=== PATIENT | male | born 1970 | race Caucasian/White ===

== ENCOUNTER 2017-10-19 19:35 | Observation (INO) | payer MEDICAID ==
[~2017-10-19] VITALS: Ht 180.3 cm; Wt 112.0 kg
[~2017-10-19 19:35] MED LIST: ASPI81TA52 PO; ATOR-2 PO; AZIT250T PO; CARV-49 PO; FENO160T PO; FURO40TA4 PO; LISI2.5T2 PO; NAPR220C15 PO; NITR0.4T51 SL; OMEG1CAP54 PO; POTA10TA19 PO; ZOLP10TA5 PO
[2017-10-19] MEDS ORDERED: FURO-149 PO (20:01)
[2017-10-19] MEDS ORDERED: aspirin 81mg tab.chew PO ONE (20:10)
[2017-10-19 20:19] LABS: BASOPHILS # (AUTO) 0.1 X10'3 (0-0.2); BASOPHILS % (AUTO) 1.1 % (0-1); EOSINOPHILS # (AUTO) 0.8 X10'3 (0-0.9); EOSINOPHILS % (AUTO) 11.9 % (0-6); HEMATOCRIT 35.3 % (42.0-52.0); HEMOGLOBIN 12.1 g/dl (14.0-17.9); LYMPHOCYTES # (AUTO) 1.4 X10'3 (1.1-4.8); LYMPHOCYTES % (AUTO) 21.4 % (21-51); MEAN CORPUSCULAR HEMOGLOBIN 31.9 PG (27.0-31.0); MEAN CORPUSCULAR HGB CONC 34.4 % (33.0-36.5); MEAN CORPUSCULAR VOLUME 92.6 FL (78-98); MEAN PLATELET VOLUME 9.1 FL (7.4-10.4); MONOCYTES # (AUTO) 0.6 X10'3 (0-0.9); MONOCYTES % (AUTO) 9.6 % (2-12); NEUTROPHILS # (AUTO) 3.6 X10'3 (1.8-7.7); PLATELET COUNT 240 X10'3 (140-440); RED BLOOD COUNT 3.81 X10'6 (4.70-6.10); RED CELL DISTRIBUTION WIDTH 13.3 % (11.5-14.5); WHITE BLOOD COUNT 6.4 X10'3 (4.5-11.0)
[2017-10-19 20:31] LABS: INR 1.1 INR; PARTIAL THROMBOPLASTIN TIME 24 SECONDS (22-32); PROTHROMBIN TIME 11.4 SECONDS (9.0-12.0)
[2017-10-19 20:34] LABS: ALANINE AMINOTRANSFERASE 41 U/L (12-78); ALBUMIN 3.8 G/DL (3.4-5.0); ALBUMIN/GLOBULIN RATIO 1.2 (1.1-1.5); ALKALINE PHOSPHATASE 43 IU/L (46-116); ANION GAP 6 (8-16); ASPARTATE AMINO TRANSFERASE 37 U/L (10-37); BILIRUBIN,TOTAL 0.6 MG/DL (0.1-1.0); BLOOD UREA NITROGEN 28 MG/DL (7-18); BUN/CREATININE RATIO 19.7 (5.4-32.0); CHLORIDE 106 MMOL/L (99-107); CREATININE 1.42 MG/DL (0.60-1.10); GLUCOSE 102 MG/DL (70-104); POTASSIUM 4.2 MMOL/L (3.5-5.1); SODIUM 139 MMOL/L (135-145); TOTAL CARBON DIOXIDE 27.1 MMOL/L (24-32); TOTAL PROTEIN 7.1 G/DL (6.4-8.2); eGFR 53 ML/MIN
[2017-10-19] MEDS: nitroGLYCERIN 0.4mg SUBLingual tab SL PRN ×2 (22:00→22:22)
[2017-10-19] MEDS ORDERED: acetaminophen 325mg tablet PO PRN ×3 (22:25)
[2017-10-19] MEDS ORDERED: magnesium hydroxide 30ml (MOM) UD suspension PO PRN ×2 (22:25)
[2017-10-19] MEDS ORDERED: mag hydrox/Alum hydrox/simeth 30ml oral suspension PO PRN ×2 (22:25)
[2017-10-19] MEDS ORDERED: ondansetron/PF 4mg/2ml inj IV PRN (22:25)
[2017-10-19] MEDS ORDERED: bisacodyl 10mg suppository rectal RC PRN (22:35)
[2017-10-19] MEDS ORDERED: nitroGLYCERIN 0.4mg SUBLingual tab SL PRN (22:35)
[2017-10-19] MEDS ORDERED: zolpidem 5mg tablet PO PRN (22:35)
[2017-10-19] MEDS ORDERED: ibuprofen 200mg tablet PO ONE (23:00)
[2017-10-19 23:36] VITALS: BP 129/76
[2017-10-20] MEDS ORDERED: morphine 2 MG/ML inj. syringe IV ONE (01:40)
[2017-10-20 02:02] LABS: ALANINE AMINOTRANSFERASE 25 U/L (12-78); ALBUMIN 2.7 G/DL (3.4-5.0); ALBUMIN/GLOBULIN RATIO 1.1 (1.1-1.5); ALKALINE PHOSPHATASE 29 IU/L (46-116); ANION GAP 7 (8-16); ASPARTATE AMINO TRANSFERASE 29 U/L (10-37); BILIRUBIN,TOTAL 0.4 MG/DL (0.1-1.0); BLOOD UREA NITROGEN 25 MG/DL (7-18); BUN/CREATININE RATIO 25.3 (5.4-32.0); CALCIUM 6.8 MG/DL (8.5-10.1); CHLORIDE 112 MMOL/L (99-107); CREATININE 0.99 MG/DL (0.60-1.10); GLUCOSE 73 MG/DL (70-104); POTASSIUM 3.1 MMOL/L (3.5-5.1); SODIUM 141 MMOL/L (135-145); TOTAL CARBON DIOXIDE 22.4 MMOL/L (24-32); TOTAL PROTEIN 5.2 G/DL (6.4-8.2); eGFR 80 ML/MIN
[2017-10-20 02:09] LABS: MAGNESIUM 1.5 MG/DL (1.5-2.4)
[2017-10-20 06:00] VITALS: BP 104/59
[2017-10-20 07:47] LABS: BASOPHILS # (AUTO) 0.1 X10'3 (0-0.2); BASOPHILS % (AUTO) 1.5 % (0-1); EOSINOPHILS # (AUTO) 0.6 X10'3 (0-0.9); EOSINOPHILS % (AUTO) 14.2 % (0-6); HEMATOCRIT 32.2 % (42.0-52.0); LYMPHOCYTES # (AUTO) 1.2 X10'3 (1.1-4.8); LYMPHOCYTES % (AUTO) 26.4 % (21-51); MEAN CORPUSCULAR HEMOGLOBIN 31.5 PG (27.0-31.0); MEAN CORPUSCULAR HGB CONC 34.1 % (33.0-36.5); MEAN CORPUSCULAR VOLUME 92.4 FL (78-98); MEAN PLATELET VOLUME 8.9 FL (7.4-10.4); MONOCYTES # (AUTO) 0.4 X10'3 (0-0.9); MONOCYTES % (AUTO) 8.8 % (2-12); NEUTROPHILS # (AUTO) 2.2 X10'3 (1.8-7.7); NEUTROPHILS % (AUTO) 49.1 % (42-75); PLATELET COUNT 187 X10'3 (140-440); RED BLOOD COUNT 3.48 X10'6 (4.70-6.10); RED CELL DISTRIBUTION WIDTH 13.5 % (11.5-14.5); WHITE BLOOD COUNT 4.5 X10'3 (4.5-11.0)
[2017-10-20] MEDS ORDERED: potassium chloride 10mEq ER tablet PO SCH (08:00)
[2017-10-20] MEDS ORDERED: heparin, porcine 5000 units/ml vial SQ SCH (08:00)
[2017-10-20] MEDS ORDERED: lisinopril 2.5mg tablet PO SCH (08:00)
[2017-10-20] MEDS ORDERED: OMEGA-3/DHA/EPA/FISH OIL 1 EACH CAPSULE.DR PO SCH (08:00)
[2017-10-20] MEDS ORDERED: carvedilol 6.25mg tablet PO SCH (08:00)
[2017-10-20] MEDS ORDERED: aspirin 81mg tab.chew PO SCH (08:30)
[2017-10-20 10:00] VITALS: BP 115/57
[2017-10-20] MEDS ORDERED: potassium Cl 20 mEq SR tablet PO PRN ×2 (10:35)
[2017-10-20] MEDS ORDERED: magnesium Cl slow-release 64mg tablet PO PRN (10:35)
[2017-10-20] MEDS ORDERED: potassium Cl 40MEQ/NS 500ml 500 ML IV PRN ×2 (10:35)
[2017-10-20] MEDS ORDERED: PANT40TA4 PO (11:59)
[2017-10-20] MEDS ORDERED: fenofibrate 145mg tablet PO SCH (21:00)
[2017-10-20] MEDS ORDERED: furosemide 40mg tablet PO SCH (21:00)
[2017-10-20] MEDS ORDERED: atorvastatin 20mg tablet PO SCH (21:00)
== END 2017-10-20 12:43 | disposition home or self-care (01) ==
LOC: ER 19:36 → ED HOLD 22:22 → INTOOBSV 22:22 → ORTHO 4S 23:28
PROVIDERS: ADMIT Emergency Medicine; ATTEND Emergency Medicine
DX: R07.89 Other chest pain (principal); I25.10 Atherosclerotic heart disease of native coronary artery without angina pectoris; I10 Essential (primary) hypertension; G47.30 Sleep apnea, unspecified; I25.2 Old myocardial infarction; Z95.1 Presence of aortocoronary bypass graft; Z95.5 Presence of coronary angioplasty implant and graft; Z95.0 Presence of cardiac pacemaker; Z87.442 Personal history of urinary calculi
CPT/HCPCS: 36415; 71045; 80053; 83735; 84484; 85025; 85610; 85730; 87070; 93005; 93306; 96372; 96374; 99285; G0378; J1644; J2270

== ENCOUNTER 2018-06-13 20:27 | Emergency (ER) | payer MEDICAID ==
[~2018-06-13] VITALS: Ht 180.3 cm; Wt 120.0 kg
[~2018-06-13 20:27] MED LIST changes: -AZIT250T PO; +FURO-149 PO; -FURO40TA4 PO; -NAPR220C15 PO; +PANT40TA4 PO
[2018-06-13 21:20] LABS: ALANINE AMINOTRANSFERASE 36 U/L (12-78); ALBUMIN 3.5 G/DL (3.4-5.0); ALKALINE PHOSPHATASE 54 IU/L (46-116); ANION GAP 7 (8-16); ASPARTATE AMINO TRANSFERASE 31 U/L (10-37); BILIRUBIN,TOTAL 0.4 MG/DL (0.1-1.0); BLOOD UREA NITROGEN 22 MG/DL (7-18); BUN/CREATININE RATIO 22.7 (5.4-32.0); CALCIUM 9.4 MG/DL (8.5-10.1); CHLORIDE 104 MMOL/L (99-107); CREATININE 0.97 MG/DL (0.60-1.10); GLUCOSE 140 MG/DL (70-104); SODIUM 138 MMOL/L (135-145); TOTAL CARBON DIOXIDE 27.1 MMOL/L (24-32); eGFR 82 ML/MIN
[2018-06-13 21:29] LABS: BASOPHILS # (AUTO) 0.1 X10'3 (0-0.2); BASOPHILS % (AUTO) 0.9 % (0-1); EOSINOPHILS # (AUTO) 0.6 X10'3 (0-0.9); EOSINOPHILS % (AUTO) 8.9 % (0-6); HEMATOCRIT 36.9 % (42.0-52.0); HEMOGLOBIN 12.3 g/dl (14.0-17.9); LYMPHOCYTES # (AUTO) 1.5 X10'3 (1.1-4.8); LYMPHOCYTES % (AUTO) 22.3 % (21-51); MEAN CORPUSCULAR HEMOGLOBIN 30.2 PG (27.0-31.0); MEAN CORPUSCULAR HGB CONC 33.2 g/dL (33.0-36.5); MEAN PLATELET VOLUME 8.3 FL (7.4-10.4); MONOCYTES # (AUTO) 0.8 X10'3 (0-0.9); MONOCYTES % (AUTO) 12.1 % (2-12); NEUTROPHILS # (AUTO) 3.8 X10'3 (1.8-7.7); NEUTROPHILS % (AUTO) 55.8 % (42-75); PLATELET COUNT 231 X10'3 (140-440); RED BLOOD COUNT 4.06 X10'6 (4.70-6.10); RED CELL DISTRIBUTION WIDTH 13.4 % (11.5-14.5); WHITE BLOOD COUNT 6.7 X10'3 (4.5-11.0)
[2018-06-13 22:05] LABS: CLARITY,URINE CLOUDY (Clear); COLOR,URINE AMBER (Yellow); GLUCOSE, URINE NEGATIVE (Neg); KETONES,URINE NEGATIVE (Neg); LEUKOCYTE ESTERASE ,URINE NEGATIVE (Neg); NITRITES, URINE NEGATIVE (Neg); OCCULT BLOOD,URINE LARGE (Neg); PROTEIN,URINE 30 mg/dl (Neg); UROBILINOGEN,URINE 0.2 E.U/dL (0.2-1.0)
[2018-06-13 22:06] LABS: UA COLLECTION TYPE CLN CATCH MIDSTREAM
[2018-06-13 22:10] LABS: WBC,URINE 0-4 /HPF (0-4)
[2018-06-13 22:11] LABS: BACTERIA,URINE FEW /HPF (Neg); RBC,URINE TNTC /HPF (0-2); SQUAMOUS EPITHELIAL CELL,UR FEW /LPF (FEW)
[2018-06-13 22:20] LABS: INR 1.2 INR; PROTHROMBIN TIME 11.7 SECONDS (9.0-12.0)
[2018-06-14] MEDS ORDERED: ondansetron/PF 4mg/2ml inj IV ONE (00:40)
[2018-06-14] MEDS ORDERED: normal saline 1000ML IV soln IVB ONE (00:40)
[2018-06-14] MEDS ORDERED: ketorolac trometh. 30mg/ml inj. IV ONE (00:40)
[2018-06-14] MEDS: morphine 4 MG/ML inj SYRINge IV PRN ×2 (00:48→02:02)
--- NOTE | 2018-06-14 00:55 | NUR ---
pt going to ct via wc
[2018-06-14] MEDS ORDERED: morphine 4 MG/ML inj SYRINge IV PRN (01:20)
[2018-06-14] MEDS ORDERED: HYDROcodone/acetaminophen 10/325mg tab PO ONE (01:20)
[2018-06-14] MEDS ORDERED: HYDR-4353 PO (02:39)
[2018-06-14] MEDS ORDERED: IBUP-1984 PO (02:39)
[2018-06-14 02:46] VITALS: BP 117/62
== END 2018-06-14 02:47 | disposition home or self-care (01) ==
LOC: ER 20:28
DX: N20.1 Calculus of ureter (principal); N23 Unspecified renal colic; I25.10 Atherosclerotic heart disease of native coronary artery without angina pectoris; I10 Essential (primary) hypertension; I25.2 Old myocardial infarction; Z87.442 Personal history of urinary calculi; Z87.891 Personal history of nicotine dependence; Z95.5 Presence of coronary angioplasty implant and graft; Z95.1 Presence of aortocoronary bypass graft; Z95.0 Presence of cardiac pacemaker; Z98.890 Other specified postprocedural states; Z88.0 Allergy status to penicillin; Z79.82 Long term (current) use of aspirin; Z79.899 Other long term (current) drug therapy
CPT/HCPCS: 36415; 74176; 80053; 81001; 85025; 85610; 96374; 96375; 96376; 99284; J1885; J2270; J2405; J7030

== ENCOUNTER 2018-07-13 09:38 | Emergency (ER) | payer MEDICAID ==
[2018-07-13] VITALS (7 sets, daily range): BP systolic 106–135; BP diastolic 56–71
[~2018-07-13] VITALS: Ht 180.3 cm; Wt 115.0 kg
[~2018-07-13 09:38] MED LIST changes: +HYDR-4353 PO; +IBUP-1984 PO
[2018-07-13 10:46] LABS: BASOPHILS # (AUTO) 0.1 X10'3 (0-0.2); BASOPHILS % (AUTO) 1.2 % (0-1); EOSINOPHILS # (AUTO) 0.3 X10'3 (0-0.9); EOSINOPHILS % (AUTO) 4.6 % (0-6); HEMATOCRIT 43.9 % (42.0-52.0); HEMOGLOBIN 14.8 g/dl (14.0-17.9); LYMPHOCYTES # (AUTO) 1.4 X10'3 (1.1-4.8); LYMPHOCYTES % (AUTO) 20.2 % (21-51); MEAN CORPUSCULAR HEMOGLOBIN 29.5 PG (27.0-31.0); MEAN CORPUSCULAR HGB CONC 33.8 g/dL (33.0-36.5); MEAN CORPUSCULAR VOLUME 87.4 FL (78-98); MEAN PLATELET VOLUME 8.2 FL (7.4-10.4); MONOCYTES # (AUTO) 0.8 X10'3 (0-0.9); MONOCYTES % (AUTO) 12.6 % (2-12); NEUTROPHILS # (AUTO) 4.1 X10'3 (1.8-7.7); NEUTROPHILS % (AUTO) 61.4 % (42-75); PLATELET COUNT 273 X10'3 (140-440); RED BLOOD COUNT 5.03 X10'6 (4.70-6.10); RED CELL DISTRIBUTION WIDTH 13.3 % (11.5-14.5); WHITE BLOOD COUNT 6.7 X10'3 (4.5-11.0)
[2018-07-13 10:52] LABS: CLARITY,URINE CLEAR (Clear); COLOR,URINE YELLOW (Yellow); GLUCOSE, URINE NEGATIVE (Neg); KETONES,URINE TRACE mg/dl (Neg); LEUKOCYTE ESTERASE ,URINE TRACE (Neg); NITRITES, URINE NEGATIVE (Neg); OCCULT BLOOD,URINE LARGE (Neg); PROTEIN,URINE 30 mg/dl (Neg); UROBILINOGEN,URINE 0.2 E.U/dL (0.2-1.0)
[2018-07-13 10:59] LABS: UA COLLECTION TYPE CLN CATCH MIDSTREAM
[2018-07-13 11:00] LABS: BACTERIA,URINE FEW /HPF (Neg); RBC,URINE 20-50 /HPF (0-2)
[2018-07-13 11:01] LABS: CAL OXALATE CRYSTALS 1+ /HPF (NEGATIVE); MUCUS STRANDS MODERATE /LPF (Neg); SQUAMOUS EPITHELIAL CELL,UR FEW /LPF (FEW)
[2018-07-13 11:01] LABS: ALANINE AMINOTRANSFERASE 43 U/L (12-78); ALBUMIN/GLOBULIN RATIO 1.1 (1.1-1.5); ALKALINE PHOSPHATASE 55 IU/L (46-116); ANION GAP 10 (8-16); ASPARTATE AMINO TRANSFERASE 40 U/L (10-37); BILIRUBIN,TOTAL 0.5 MG/DL (0.1-1.0); BLOOD UREA NITROGEN 22 MG/DL (7-18); BUN/CREATININE RATIO 20.8 (5.4-32.0); CALCIUM 10.2 MG/DL (8.5-10.1); CHLORIDE 104 MMOL/L (99-107); CREATININE 1.06 MG/DL (0.60-1.10); GLUCOSE 131 MG/DL (70-104); INR 1.1 INR; PROTHROMBIN TIME 11.4 SECONDS (9.0-12.0); SODIUM 141 MMOL/L (135-145); TOTAL CARBON DIOXIDE 27.2 MMOL/L (24-32); TOTAL PROTEIN 7.8 G/DL (6.4-8.2); eGFR 74 ML/MIN
[2018-07-13] MEDS ORDERED: ketorolac trometh. 30mg/ml inj. IV ONE (11:05)
[2018-07-13] MEDS ORDERED: tamsulosin 0.4mg capsule PO ONE (11:05)
[2018-07-13] MEDS ORDERED: morphine 2 MG/ML inj. syringe IV PRN (11:05)
[2018-07-13] MEDS ORDERED: normal saline 1000ML IV soln IVB ONE (11:05)
--- NOTE | 2018-07-13 12:10 | NUR ---
EXPECTED CALL BACK FROM [facility] WITHIN 20 MIN
[2018-07-13] MEDS ORDERED: dextrose 5%-1/2 normal saline 1,000 ML IV SCH (13:04)
[2018-07-13] MEDS ORDERED: acetaminophen 325mg tablet PO PRN ×2 (13:05)
[2018-07-13] MEDS ORDERED: ondansetron/PF 4mg/2ml inj IV PRN ×2 (13:05→15:10)
[2018-07-13] MEDS ORDERED: mag hydrox/Alum hydrox/simeth 30ml oral suspension PO PRN (13:05)
[2018-07-13] MEDS ORDERED: magnesium hydroxide 30ml (MOM) UD suspension PO PRN (13:05)
[2018-07-13] MEDS ORDERED: morphine 4 MG/ML inj SYRINge IV PRN ×4 (13:05→15:10)
--- NOTE | 2018-07-13 13:43 | NUR ---
vincentar to don plunkett or
[2018-07-13] MEDS ORDERED: iohexol 300 MG/1 ML 50ml polymer ONE (13:53)
[2018-07-13] MEDS ORDERED: fentaNYL/PF 50MCG/1 ML 2ML syringe ONE (14:26)
[2018-07-13] MEDS ORDERED: midazolam 2 mg/2 ml injection ONE (14:26)
--- NOTE | 2018-07-13 15:05 | NUR ---
Received from OR via BED , accompanied by Anesthesiologist DR AGUILAR and report given by Anesthesiolgist. PATIENT A&OX4, C/O PAIN SEE EMAR, V/S WNL, CSM INTACT, SCD ON, 20G PIV RUE.
[2018-07-13] MEDS ORDERED: meperidine/PF 25mg/ml syringe ONE (15:06)
[2018-07-13] MEDS ORDERED: ringers solution, lacted 1,000 ML IV SCH (15:09)
[2018-07-13] MEDS ORDERED: meperidine/PF 25mg/ml syringe IV PRN ×2 (15:10)
[2018-07-13] MEDS ORDERED: ondansetron/PF 4mg/2ml inj ONE (15:21)
[2018-07-13] MEDS ORDERED: dexamethasone sod phosphate 4mg/ml inj. ONE (15:21)
[2018-07-13] MEDS ORDERED: LIDOcaine 2% (20mg/ml) 5ml vial ONE (15:21)
[2018-07-13] MEDS ORDERED: albuterol 60 PUFF/8GM Inhaler IH ONE (15:21)
[2018-07-13] MEDS ORDERED: propofol inj 20 ML IV ONE (15:21)
[2018-07-13] MEDS ORDERED: succinylcholine 20mg/ml inj IV ONE (15:21)
--- NOTE | 2018-07-13 16:05 | NUR ---
DR DEJESUS STATED PATIENT MAY GO HOME, I SPOKE WITH HOSPITALIST WHO ALSO STATED HE MAY GO HOME, D/C ORDERS GIVEN. patient a&ox4, DENIES PAIN, V/S WNL, NEUROVASCULAR CHECKS INTACT,RUE PIV, SCD ON, ALL DC CRITERIA HAS BEEN MET. IV OUT WITHOUT ISSUE OR COMPLICATION. DENIES PAIN. FAMILY PRESENT FOR DC PAPERWORK. ALL QUESTIONS ANSWERED, FAMILY ASSISTED PATIENT IN GETTING DRESSED, OUT VIA WHEELCHAIR TO PERSONAL VEHICLE WHERE FAMILY DROVE PATIENT HOME. ALL DC CRITERIA HAS BEEN MET AND DRESSING IS CDI.
[2018-07-13] MEDS ORDERED: tamsulosin 0.4mg capsule PO SCH (21:00)
[2018-07-14] MEDS ORDERED: enoxaparin 40mg/0.4ml syringe SUBCUT SCH (08:00)
== END 2018-07-13 16:05 | disposition home or self-care (01) ==
LOC: ER 09:39 → UNDOADMIN 13:04 → ED HOLD 13:04 → EDBEDREQ 13:42 → ER 16:05 → UNDODISIN 16:27
PROC: 0T738DZ Dilation of Right Kidney Pelvis with Intraluminal Device, Via Natural or Artificial Opening Endoscopic (ICD-10-PCS; principal; 2018-07-13 14:25)
DX: N20.1 Calculus of ureter (principal); N13.8 Other obstructive and reflux uropathy; N23 Unspecified renal colic; I25.10 Atherosclerotic heart disease of native coronary artery without angina pectoris; I10 Essential (primary) hypertension; I25.2 Old myocardial infarction; Z87.442 Personal history of urinary calculi; Z95.5 Presence of coronary angioplasty implant and graft; Z95.1 Presence of aortocoronary bypass graft; Z98.890 Other specified postprocedural states; Z95.0 Presence of cardiac pacemaker; Z79.82 Long term (current) use of aspirin; Z79.899 Other long term (current) drug therapy; Z88.0 Allergy status to penicillin; M54.5 Low back pain
CPT/HCPCS: 36415; 52332; 76000; 80053; 81001; 85025; 85610; 87088; 96374; 96375; 99285; C2617; J0330; J1100; J1885; J2001; J2175; J2250; J2270; J2405; J2704; J3010; J7030; J7120; Q9967; 99281; A4402; C1758; C1769; G0378

== ENCOUNTER 2018-07-14 19:15 | Inpatient (IN) | payer MEDICAID ==
[~2018-07-14] VITALS: Ht 180.3 cm; Wt 113.0 kg
[2018-07-14 19:48] LABS: BASOPHILS % (AUTO) 0.2 % (0-1); EOSINOPHILS % (AUTO) 0 % (0-6); HEMATOCRIT 37.5 % (42.0-52.0); HEMOGLOBIN 12.4 g/dl (14.0-17.9); LYMPHOCYTES % (AUTO) 7.6 % (21-51); MEAN CORPUSCULAR HEMOGLOBIN 29.3 PG (27.0-31.0); MEAN CORPUSCULAR HGB CONC 33.2 g/dL (33.0-36.5); MEAN CORPUSCULAR VOLUME 88.2 FL (78-98); MEAN PLATELET VOLUME 8.4 FL (7.4-10.4); MONOCYTES # (AUTO) 1.1 X10'3 (0-0.9); MONOCYTES % (AUTO) 8.5 % (2-12); NEUTROPHILS # (AUTO) 10.8 X10'3 (1.8-7.7); NEUTROPHILS % (AUTO) 83.7 % (42-75); PLATELET COUNT 222 X10'3 (140-440); RED BLOOD COUNT 4.25 X10'6 (4.70-6.10); RED CELL DISTRIBUTION WIDTH 13.2 % (11.5-14.5); WHITE BLOOD COUNT 12.8 X10'3 (4.5-11.0)
[2018-07-14 19:50] LABS: ALANINE AMINOTRANSFERASE 29 U/L (12-78); ALBUMIN 3.4 G/DL (3.4-5.0); ALKALINE PHOSPHATASE 47 IU/L (46-116); ANION GAP 10 (8-16); ASPARTATE AMINO TRANSFERASE 23 U/L (10-37); BILIRUBIN,TOTAL 0.4 MG/DL (0.1-1.0); BLOOD UREA NITROGEN 24 MG/DL (7-18); BUN/CREATININE RATIO 20.2 (5.4-32.0); CALCIUM 9.6 MG/DL (8.5-10.1); CHLORIDE 108 MMOL/L (99-107); CREATININE 1.19 MG/DL (0.60-1.10); GLUCOSE 163 MG/DL (70-104); INR 1.1 INR; POTASSIUM 3.7 MMOL/L (3.5-5.1); PROTHROMBIN TIME 11.4 SECONDS (9.0-12.0); SODIUM 141 MMOL/L (135-145); TOTAL CARBON DIOXIDE 22.8 MMOL/L (24-32); TOTAL PROTEIN 6.7 G/DL (6.4-8.2); eGFR 65 ML/MIN
[2018-07-14] MEDS ORDERED: ketorolac trometh. 30mg/ml inj. IV ONE (20:05)
[2018-07-14] MEDS ORDERED: ondansetron/PF 4mg/2ml inj IV ONE (20:05)
[2018-07-14] MEDS ORDERED: morphine 4 MG/ML inj SYRINge IV ONE ×2 (20:05→20:25)
[2018-07-14] MEDS ORDERED: normal saline 1000ml 1,000 ML IV ONE ×2 (20:25)
[2018-07-14 20:50] LABS: CLARITY,URINE CLOUDY (Clear); COLOR,URINE BROWN (Yellow); GLUCOSE, URINE 250 mg/dl (Neg); KETONES,URINE TRACE mg/dl (Neg); LEUKOCYTE ESTERASE ,URINE SMALL (Neg); NITRITES, URINE POSITIVE (Neg); OCCULT BLOOD,URINE LARGE (Neg); PH,URINE 6.5 (4.8-8.0); PROTEIN,URINE >=300 mg/dl (Neg)
[2018-07-14] MEDS ORDERED: HYDROmorphone 1 mg/ml syringe IV ONE (21:00)
[2018-07-14 21:01] LABS: UA COLLECTION TYPE CLN CATCH MIDSTREAM
[2018-07-14 21:09] LABS: RBC,URINE 50-100 /HPF (0-2); WBC,URINE 20-30 /HPF (0-4)
[2018-07-14 21:10] LABS: BACTERIA,URINE NONE SEEN /HPF (Neg); CAL OXALATE CRYSTALS 2+ /HPF (NEGATIVE); MUCUS STRANDS MANY /LPF (Neg); SQUAMOUS EPITHELIAL CELL,UR FEW /LPF (FEW)
[2018-07-14] MEDS ORDERED: CefTRIAXone/D5W-Rocephin 1gm 50 ML IV ONE (21:10)
[2018-07-14] MEDS ORDERED: potassium Cl 40MEQ/NS 500ml 500 ML IV PRN ×2 (22:05)
[2018-07-14] MEDS ORDERED: HYDROcodone/acetaminophen 5mg/325mg tablet PO PRN (22:05)
[2018-07-14] MEDS ORDERED: HYDROmorphone inj. 0.5 MG/0.5 ML DISP.SYRIN IV PRN (22:05)
[2018-07-14] MEDS ORDERED: magnesium hydroxide 30ml (MOM) UD suspension PO PRN (22:05)
[2018-07-14] MEDS ORDERED: magnesium 2GM in 50ml NS 50 ML IV PRN (22:05)
[2018-07-14] MEDS ORDERED: magnesium Cl slow-release 64mg tablet PO PRN (22:05)
[2018-07-14] MEDS ORDERED: magnesium 4gm in 100ml NS 100 ML IV PRN (22:05)
[2018-07-14] MEDS ORDERED: potassium Cl 20 mEq SR tablet PO PRN ×2 (22:05)
[2018-07-14] MEDS ORDERED: acetaminophen 325mg tablet PO PRN ×2 (22:05)
[2018-07-14] MEDS ORDERED: mag hydrox/Alum hydrox/simeth 30ml oral suspension PO PRN (22:05)
[2018-07-14 23:15] VITALS: BP 163/84
[2018-07-14] MEDS: normal saline 1000ml 1,000 ML IV SCH (23:27)
[2018-07-15] MEDS: HYDROmorphone 1 mg/ml syringe IV PRN ×5 (01:40→21:28)
[2018-07-15] MEDS: ondansetron/PF 4mg/2ml inj IV PRN ×2 (02:30→10:30)
[2018-07-15] MEDS: HYDROcodone/acetaminophen 10/325mg tab PO PRN ×3 (04:32→20:35)
--- NOTE | 2018-07-15 06:45 | NUR ---
Patient in room ORTHO 4013. I have received report from Zoie and had the opportunity to ask questions and assume patient care.
[2018-07-15 06:47] LABS: ALBUMIN 2.7 G/DL (3.4-5.0); ANION GAP 7 (8-16); BLOOD UREA NITROGEN 24 MG/DL (7-18); BUN/CREATININE RATIO 25.3 (5.4-32.0); CALCIUM 8.6 MG/DL (8.5-10.1); CHLORIDE 110 MMOL/L (99-107); CREATININE 0.95 MG/DL (0.60-1.10); GLUCOSE 122 MG/DL (70-104); MAGNESIUM 1.6 MG/DL (1.5-2.4); POTASSIUM 3.8 MMOL/L (3.5-5.1); SODIUM 141 MMOL/L (135-145); TOTAL CARBON DIOXIDE 24.4 MMOL/L (24-32); eGFR 84 ML/MIN
[2018-07-15 07:06] LABS: BASOPHILS % (AUTO) 0.4 % (0-1); EOSINOPHILS % (AUTO) 0.3 % (0-6); HEMATOCRIT 33.2 % (42.0-52.0); HEMOGLOBIN 11.1 g/dl (14.0-17.9); LYMPHOCYTES # (AUTO) 1.3 X10'3 (1.1-4.8); LYMPHOCYTES % (AUTO) 14.9 % (21-51); MEAN CORPUSCULAR HEMOGLOBIN 29.8 PG (27.0-31.0); MEAN CORPUSCULAR HGB CONC 33.5 g/dL (33.0-36.5); MEAN CORPUSCULAR VOLUME 88.8 FL (78-98); MEAN PLATELET VOLUME 8.7 FL (7.4-10.4); MONOCYTES # (AUTO) 0.9 X10'3 (0-0.9); MONOCYTES % (AUTO) 10.3 % (2-12); NEUTROPHILS # (AUTO) 6.5 X10'3 (1.8-7.7); NEUTROPHILS % (AUTO) 74.1 % (42-75); PLATELET COUNT 187 X10'3 (140-440); RED BLOOD COUNT 3.74 X10'6 (4.70-6.10); RED CELL DISTRIBUTION WIDTH 13.4 % (11.5-14.5); WHITE BLOOD COUNT 8.8 X10'3 (4.5-11.0)
[2018-07-15 07:08] VITALS: BP 121/67
[2018-07-15] MEDS: carvedilol 6.25mg tablet PO SCH ×2 (07:58→20:35)
[2018-07-15] MEDS: lactobacillus rhamnosus 10,000 MMU CELLS/CAPSULE PO SCH ×2 (07:58→20:35)
[2018-07-15] MEDS: potassium chloride 10mEq ER tablet PO SCH ×2 (07:58→20:35)
[2018-07-15] MEDS: lisinopril 2.5mg tablet PO SCH (07:59)
[2018-07-15] MEDS: K and/or MAG REPLACEMENT MC SCH (08:00)
[2018-07-15] MEDS: normal saline 1000ml 1,000 ML IV SCH ×2 (08:01→17:09)
--- NOTE | 2018-07-15 08:24 | NUR ---
Bowl sounds absent in all four quadrants. Informed YAMILKA Lino. She assessed the patient and auscultated sounds in the upper right quadrant. Patient is flatus. Addendum: 07/15/18 at 0833 by Jasmeet SANCHEZ-NU Amended: Links added.
--- NOTE | 2018-07-15 08:58 | NUR ---
Patient exhibits guarding in the upper right and right lower abdomen toward groin. Patient exhibits pain upon palpation of upper right and lower right abdomen. Addendum: 07/15/18 at 0906 by Jasmeet NICHOLS Amended: Links added.
--- NOTE | 2018-07-15 09:53 | NUR ---
left, lower ankle swelling. No pitting. Addendum: 07/15/18 at 0954 by Jasmeet NICHOLS Amended: Links added.
--- NOTE | 2018-07-15 11:08 | NUR ---
Patient's assisted with perineal care and cleaning over lower extremities. Addendum: 07/15/18 at 1110 by Jasmeet NICHOLS Amended: Links added.
--- NOTE | 2018-07-15 11:25 | NUR ---
Reassessed bowl sounds of the abdomen. Bowl sounds very faint but auscultated in all four quadrants.
--- NOTE | 2018-07-15 11:30 | NUR ---
Patient ambulated one lap around the 4th floor.
--- NOTE | 2018-07-15 11:38 | NUR ---
Student Medication Administration: For this medication-pass time frame 2564-2165, all medications were reviewed, administered and documented per hospital policy by Diego Shankar. Student documentation: I have reviewed and agree with all interventions, assessments performed and documented by Diego Shankar. Patient has bowel sounds and is passing flatus.
[2018-07-15] MEDS ORDERED: CEFP200T13 PO (12:19)
--- NOTE | 2018-07-15 12:21 | NUR ---
Problems reprioritized. Patient report given, questions answered & plan of care reviewed with
[2018-07-15] MEDS: oxybutynin 5mg tablet PO SCH ×2 (13:23→20:35)
[2018-07-15 14:31] VITALS: BP 151/61
[2018-07-15 18:00] VITALS: BP 112/72
--- NOTE | 2018-07-15 18:30 | NUR ---
Received report from Zoie PRATHER, assumed care of patient.
[2018-07-15] MEDS: CefTRIAXone 2gm/D5W 50ml 50 ML IV SCH (20:35)
[2018-07-15] MEDS: atorvastatin 20mg tablet PO SCH (20:35)
[2018-07-15] MEDS: fenofibrate 145mg tablet PO SCH (20:35)
[2018-07-15] MEDS: zolpidem 5mg tablet PO PRN (21:31)
[2018-07-15 22:00] VITALS: BP 104/66
[2018-07-16] MEDS: HYDROcodone/acetaminophen 10/325mg tab PO PRN ×2 (02:02→07:48)
[2018-07-16] MEDS: HYDROmorphone 1 mg/ml syringe IV PRN ×5 (03:06→21:05)
--- NOTE | 2018-07-16 06:09 | NUR ---
Report given to Zoie PRATHER.
[2018-07-16] MEDS: normal saline 1000ml 1,000 ML IV SCH ×3 (06:48→21:16)
[2018-07-16 06:51] LABS: BASOPHILS # (AUTO) 0.1 X10'3 (0-0.2); BASOPHILS % (AUTO) 0.8 % (0-1); EOSINOPHILS # (AUTO) 0.2 X10'3 (0-0.9); HEMATOCRIT 34.7 % (42.0-52.0); HEMOGLOBIN 11.8 g/dl (14.0-17.9); LYMPHOCYTES # (AUTO) 1.3 X10'3 (1.1-4.8); LYMPHOCYTES % (AUTO) 20.9 % (21-51); MEAN CORPUSCULAR HEMOGLOBIN 29.9 PG (27.0-31.0); MEAN CORPUSCULAR HGB CONC 33.9 g/dL (33.0-36.5); MEAN CORPUSCULAR VOLUME 88.3 FL (78-98); MEAN PLATELET VOLUME 8.2 FL (7.4-10.4); MONOCYTES # (AUTO) 0.7 X10'3 (0-0.9); MONOCYTES % (AUTO) 10.5 % (2-12); NEUTROPHILS # (AUTO) 4.1 X10'3 (1.8-7.7); NEUTROPHILS % (AUTO) 64.8 % (42-75); PLATELET COUNT 180 X10'3 (140-440); RED BLOOD COUNT 3.93 X10'6 (4.70-6.10); RED CELL DISTRIBUTION WIDTH 13.4 % (11.5-14.5); WHITE BLOOD COUNT 6.4 X10'3 (4.5-11.0)
[2018-07-16 06:57] LABS: ALBUMIN 2.8 G/DL (3.4-5.0); ANION GAP 5 (8-16); BLOOD UREA NITROGEN 15 MG/DL (7-18); BUN/CREATININE RATIO 19.5 (5.4-32.0); CALCIUM 9.2 MG/DL (8.5-10.1); CHLORIDE 107 MMOL/L (99-107); CREATININE 0.77 MG/DL (0.60-1.10); GLUCOSE 104 MG/DL (70-104); MAGNESIUM 1.7 MG/DL (1.5-2.4); SODIUM 139 MMOL/L (135-145); TOTAL CARBON DIOXIDE 26.8 MMOL/L (24-32); eGFR > 90 ML/MIN
[2018-07-16 07:02] VITALS: BP 148/80
[2018-07-16] MEDS: K and/or MAG REPLACEMENT MC SCH (07:40)
[2018-07-16] MEDS: lisinopril 2.5mg tablet PO SCH (07:48)
[2018-07-16] MEDS: oxybutynin 5mg tablet PO SCH ×3 (07:48→21:04)
[2018-07-16] MEDS: carvedilol 6.25mg tablet PO SCH ×2 (07:48→21:04)
[2018-07-16] MEDS: potassium chloride 10mEq ER tablet PO SCH ×2 (07:48→21:05)
[2018-07-16] MEDS: lactobacillus rhamnosus 10,000 MMU CELLS/CAPSULE PO SCH ×2 (07:48→21:04)
[2018-07-16 11:14] VITALS: BP 114/61
[2018-07-16 17:00] VITALS: BP 126/84
--- NOTE | 2018-07-16 18:20 | NUR ---
Received report from Zoie PRATHER, assumed care of patient.
[2018-07-16] MEDS ORDERED: amitriptyline 25mg tablet PO SCH (21:00)
[2018-07-16] MEDS: atorvastatin 20mg tablet PO SCH (21:04)
[2018-07-16] MEDS: fenofibrate 145mg tablet PO SCH (21:04)
[2018-07-16] MEDS: CefTRIAXone 2gm/D5W 50ml 50 ML IV SCH (21:04)
[2018-07-16] MEDS: zolpidem 5mg tablet PO PRN (21:04)
[2018-07-16 22:00] VITALS: BP 131/60
[2018-07-17] MEDS: HYDROcodone/acetaminophen 10/325mg tab PO PRN ×3 (01:12→11:35)
[2018-07-17] MEDS: HYDROmorphone 1 mg/ml syringe IV PRN ×3 (03:19→13:11)
--- NOTE | 2018-07-17 04:38 | NUR ---
Pt with c/o increase pain with current pain management orders. Notified MD Cole with new orders received and placed for Boyle 10-325mg 1 tab po q4hr PRN for moderate pain and Boyle 10-325mg 2 tabs po q4hr for severe pain. DC Boyle 5-325 mg 1 tab q4hr PRN for moderate pain. Will update patient with medication change.
[2018-07-17 06:00] VITALS: BP 123/67
--- NOTE | 2018-07-17 06:00 | NUR ---
Patient in room ORTHO 4013. I have received report from Maggie Humphries RN and had the opportunity to ask questions and assume patient care.
[2018-07-17 06:33] LABS: BASOPHILS % (AUTO) 0.5 % (0-1); EOSINOPHILS # (AUTO) 0.3 X10'3 (0-0.9); EOSINOPHILS % (AUTO) 4.8 % (0-6); HEMATOCRIT 37.7 % (42.0-52.0); HEMOGLOBIN 12.5 g/dl (14.0-17.9); LYMPHOCYTES # (AUTO) 1.1 X10'3 (1.1-4.8); LYMPHOCYTES % (AUTO) 19.8 % (21-51); MEAN CORPUSCULAR HEMOGLOBIN 29.3 PG (27.0-31.0); MEAN CORPUSCULAR HGB CONC 33.1 g/dL (33.0-36.5); MEAN CORPUSCULAR VOLUME 88.4 FL (78-98); MEAN PLATELET VOLUME 8.3 FL (7.4-10.4); MONOCYTES # (AUTO) 0.7 X10'3 (0-0.9); NEUTROPHILS # (AUTO) 3.5 X10'3 (1.8-7.7); NEUTROPHILS % (AUTO) 61.9 % (42-75); PLATELET COUNT 195 X10'3 (140-440); RED BLOOD COUNT 4.27 X10'6 (4.70-6.10); RED CELL DISTRIBUTION WIDTH 13.1 % (11.5-14.5); WHITE BLOOD COUNT 5.7 X10'3 (4.5-11.0)
--- NOTE | 2018-07-17 06:33 | NUR ---
Report given to Eris PRATHER.
[2018-07-17 06:37] LABS: ALBUMIN 2.9 G/DL (3.4-5.0); ANION GAP 6 (8-16); BLOOD UREA NITROGEN 14 MG/DL (7-18); BUN/CREATININE RATIO 16.9 (5.4-32.0); CALCIUM 9.4 MG/DL (8.5-10.1); CHLORIDE 106 MMOL/L (99-107); CREATININE 0.83 MG/DL (0.60-1.10); GLUCOSE 111 MG/DL (70-104); MAGNESIUM 1.7 MG/DL (1.5-2.4); SODIUM 139 MMOL/L (135-145); TOTAL CARBON DIOXIDE 26.8 MMOL/L (24-32); eGFR > 90 ML/MIN
[2018-07-17] MEDS: K and/or MAG REPLACEMENT MC SCH (07:53)
[2018-07-17] MEDS: lactobacillus rhamnosus 10,000 MMU CELLS/CAPSULE PO SCH (08:02)
[2018-07-17] MEDS: potassium chloride 10mEq ER tablet PO SCH (08:12)
[2018-07-17] MEDS: carvedilol 6.25mg tablet PO SCH (08:13)
[2018-07-17] MEDS: oxybutynin 5mg tablet PO SCH ×2 (08:13→13:09)
[2018-07-17] MEDS: lisinopril 2.5mg tablet PO SCH (08:13)
[2018-07-17] MEDS: normal saline 1000ml 1,000 ML IV SCH (08:18)
[2018-07-17 10:00] VITALS: BP 119/69
--- NOTE | 2018-07-17 11:29 | NUR ---
Student documentation: I have reviewed all interventions, assessments performed and documented by Nancy Cruz. Student Medication Administration: For this medication-pass time frame, all medication were reviewed, dispensed, administered and documented per hospital policy by Nancy Cruz.
[2018-07-17] MEDS ORDERED: OXYB5TAB11 PO (11:33)
[2018-07-17] MEDS ORDERED: AMIT-106 PO (11:33)
--- NOTE | 2018-07-17 13:15 | NUR ---
patient discharged home with all belongings, IV taken out canula intact, medications called into preferred pharmacy, patient and educated on discharge instructions
[2018-07-17] MEDS ORDERED: CIPR-230 PO (14:37)
--- NOTE | 2018-07-17 15:21 | NUR ---
Paged Dr. Ridley that abx Vantin is not covered by insurance can it be changed
--- NOTE | 2018-07-17 15:54 | NUR ---
Dr. Ridley changed abx to Ciprofloxacin 500mg instead of vantin, new rx was called in to pharmacy
== END 2018-07-17 13:15 | disposition home or self-care (01) | DRG 465 ==
LOC: ER 19:16 → ED HOLD 22:01 → EDBEDREQ 22:40 → ORTHO 4S 23:15
PROVIDERS: ADMIT Hospitalist; ATTEND Internal Medicine
DX: N20.0 Calculus of kidney (principal); E11.51 Type 2 diabetes mellitus with diabetic peripheral angiopathy without gangrene; E86.0 Dehydration; N39.0 Urinary tract infection, site not specified; G47.30 Sleep apnea, unspecified; I10 Essential (primary) hypertension; I25.10 Atherosclerotic heart disease of native coronary artery without angina pectoris; G47.00 Insomnia, unspecified; I25.2 Old myocardial infarction; Z87.442 Personal history of urinary calculi; Z95.1 Presence of aortocoronary bypass graft; Z95.0 Presence of cardiac pacemaker; Z88.0 Allergy status to penicillin; Z79.899 Other long term (current) drug therapy; Z79.82 Long term (current) use of aspirin; Z82.49 Family history of ischemic heart disease and other diseases of the circulatory system; Z82.5 Family history of asthma and other chronic lower respiratory diseases; Z83.3 Family history of diabetes mellitus
CPT/HCPCS: 36415; 74018; 80048; 80053; 81001; 83735; 85025; 85610; 87070; 87088; 96365; 96375; 99285; G0378; J0696; J1170; J1885; J2270; J2405; J7030

== ENCOUNTER 2018-08-06 16:52 | Observation (INO) | payer MEDICAID ==
[~2018-08-06] VITALS: Ht 180.3 cm; Wt 105.0 kg
[~2018-08-06 16:52] MED LIST changes: +AMIT-106 PO; -ASPI81TA52 PO; +CIPR-230 PO; -FURO-149 PO; -HYDR-4353 PO; -IBUP-1984 PO; -NITR0.4T51 SL; -OMEG1CAP54 PO; +OXYB5TAB11 PO; -PANT40TA4 PO
[2018-08-06] MEDS ORDERED: diltiazem 30mg tablet PO ONE ×2 (17:15→18:15)
[2018-08-06] MEDS ORDERED: diltiazem 5mg/ml 5ml inj. IV ONE ×2 (17:15→18:00)
[2018-08-06] MEDS ORDERED: LORazepam 2 mg/ml vial IV ONE (17:20)
[2018-08-06] MEDS ORDERED: potassium Cl 20 mEq SR tablet PO STA (17:20)
[2018-08-06] MEDS ORDERED: magnesium 2GM in 50ml NS 50 ML IV ONE ×2 (17:20→18:15)
[2018-08-06 17:38] LABS: BASOPHILS # (AUTO) 0.1 X10'3 (0-0.2); EOSINOPHILS # (AUTO) 0.4 X10'3 (0-0.9); HEMATOCRIT 33.6 % (42.0-52.0); HEMOGLOBIN 11.4 g/dl (14.0-17.9); LYMPHOCYTES # (AUTO) 1.4 X10'3 (1.1-4.8); LYMPHOCYTES % (AUTO) 15.3 % (21-51); MEAN CORPUSCULAR HEMOGLOBIN 29.5 PG (27.0-31.0); MEAN CORPUSCULAR HGB CONC 33.9 g/dL (33.0-36.5); MEAN CORPUSCULAR VOLUME 86.8 FL (78-98); MEAN PLATELET VOLUME 8.3 FL (7.4-10.4); MONOCYTES # (AUTO) 1.2 X10'3 (0-0.9); NEUTROPHILS # (AUTO) 6.1 X10'3 (1.8-7.7); NEUTROPHILS % (AUTO) 66.7 % (42-75); PLATELET COUNT 258 X10'3 (140-440); RED BLOOD COUNT 3.87 X10'6 (4.70-6.10); WHITE BLOOD COUNT 9.1 X10'3 (4.5-11.0)
[2018-08-06 17:48] LABS: INR 1.2 INR; PARTIAL THROMBOPLASTIN TIME 31 SECONDS (22-32)
[2018-08-06 17:51] LABS: ALANINE AMINOTRANSFERASE 20 U/L (12-78); ALBUMIN 2.6 G/DL (3.4-5.0); ALBUMIN/GLOBULIN RATIO 0.7 (1.1-1.5); ALKALINE PHOSPHATASE 50 IU/L (46-116); ANION GAP 11 (8-16); ASPARTATE AMINO TRANSFERASE 21 U/L (10-37); BILIRUBIN,TOTAL 0.4 MG/DL (0.1-1.0); BLOOD UREA NITROGEN 17 MG/DL (7-18); BUN/CREATININE RATIO 17.3 (5.4-32.0); CALCIUM 9.3 MG/DL (8.5-10.1); CHLORIDE 112 MMOL/L (99-107); CREATININE 0.98 MG/DL (0.60-1.10); GLUCOSE 97 MG/DL (70-104); POTASSIUM 3.6 MMOL/L (3.5-5.1); SODIUM 144 MMOL/L (135-145); TOTAL CARBON DIOXIDE 21.5 MMOL/L (24-32); TOTAL PROTEIN 6.3 G/DL (6.4-8.2); eGFR 81 ML/MIN
[2018-08-06 17:58] LABS: MAGNESIUM 1.3 MG/DL (1.5-2.4)
[2018-08-06] MEDS ORDERED: normal saline 1000ML IV soln IVB ONE (18:00)
--- NOTE | 2018-08-06 18:19 | NUR ---
[employer] CONTACT[facility], THEY WILL BE SENDING A REP TO INTERROGATE THE PACERMAKER OUT. REP SHOULD BE CALLING US BACK.
--- NOTE | 2018-08-06 18:35 | NUR ---
[employer] REP IS COMING TO EVALUATE THE PATIENT AND HIS DEVICE AT THE REQUEST OF MD GORDON.
[2018-08-06] MEDS ORDERED: fentaNYL/PF 50MCG/1 ML 2ML syringe IV ONE (19:40)
[2018-08-06] MEDS ORDERED: etomidate 2mg/ml inj. IV ONE (19:40)
[2018-08-06] MEDS: normal saline 1000ml 1,000 ML IV SCH (20:02)
--- NOTE | 2018-08-06 20:35 | NUR ---
DR GORDON READY FOR CARDIOVERSION, WAITING FOR RESPIRATORY: END TIDAL CO2: 33:MONITORING PATIENT PLACED ON 2 LITERS NC
[2018-08-06] MEDS: fentaNYL/PF 50MCG/1 ML 2ML syringe IV PRN ×2 (21:02→21:03)
--- NOTE | 2018-08-06 21:07 | NUR ---
PATIENT TOLERATED CARDIOVERSION WELL, END TIDAL CO2 33-37 THRUOUT PROCEEDURE PATIENT HAD A BAD DREAM WHEN ETOMIDATE GIVEN PATIENT RECEIVED 10MG ETOMIDATE AND 50 MCG FENTANYL PATITIENT IS IN SR.
[2018-08-06] MEDS ORDERED: aspirin 325mg tablet PO ONE (22:10)
--- NOTE | 2018-08-06 22:30 | NUR ---
PATIENT ON HOSPITAL BED AND RECEIVED RESTORIL FOR SLEEP VSS REPORT TO ABNER PRATHER
[2018-08-06] MEDS ORDERED: temazepam 15mg capsule PO ONE (22:35)
[2018-08-07] VITALS (11 sets, daily range): BP systolic 107–131; BP diastolic 63–72
[2018-08-07] MEDS ORDERED: LORazepam 2 mg/ml vial IV ONE (01:00)
--- NOTE | 2018-08-07 02:08 | NUR ---
PATIENT IS VPACED SR
[2018-08-07] MEDS ORDERED: heparin 25,000 UNIT/250ml bag 250 ML IV SCH (03:13)
[2018-08-07] MEDS ORDERED: heparin 10,000 units/1 ML INJ IV ONE ×2 (03:15→03:25)
[2018-08-07] MEDS ORDERED: heparin 10,000 units/1 ML INJ IV PRN (03:15)
[2018-08-07] MEDS ORDERED: mag hydrox/Alum hydrox/simeth 30ml oral suspension PO PRN (04:05)
[2018-08-07] MEDS ORDERED: magnesium hydroxide 30ml (MOM) UD suspension PO PRN (04:05)
[2018-08-07] MEDS ORDERED: acetaminophen 325mg tablet PO PRN (04:05)
[2018-08-07] MEDS ORDERED: ondansetron/PF 4mg/2ml inj IV PRN (04:05)
--- NOTE | 2018-08-07 04:44 | NUR ---
REPORT CALLED TO ROSA PRATHER ON PCU, CASE DISCUESS, MEDICATIONS REVIEWED. RN AGREES TO TAKE PATIENT. PT TRANSPORTED WITH BELONGINGS ON HOSPITAL BED.
[2018-08-07] MEDS: normal saline 1000ml 1,000 ML IV SCH ×2 (05:47→16:26)
[2018-08-07 06:31] LABS: BASOPHILS # (AUTO) 0.1 X10'3 (0-0.2); BASOPHILS % (AUTO) 0.7 % (0-1); EOSINOPHILS # (AUTO) 0.4 X10'3 (0-0.9); EOSINOPHILS % (AUTO) 5.4 % (0-6); HEMATOCRIT 29.6 % (42.0-52.0); HEMOGLOBIN 10.1 g/dl (14.0-17.9); LYMPHOCYTES # (AUTO) 1.3 X10'3 (1.1-4.8); LYMPHOCYTES % (AUTO) 16.1 % (21-51); MEAN CORPUSCULAR HEMOGLOBIN 29.9 PG (27.0-31.0); MEAN CORPUSCULAR HGB CONC 34.1 g/dL (33.0-36.5); MEAN CORPUSCULAR VOLUME 87.7 FL (78-98); MEAN PLATELET VOLUME 8.2 FL (7.4-10.4); MONOCYTES # (AUTO) 0.8 X10'3 (0-0.9); MONOCYTES % (AUTO) 10.8 % (2-12); NEUTROPHILS # (AUTO) 5.2 X10'3 (1.8-7.7); PLATELET COUNT 209 X10'3 (140-440); RED BLOOD COUNT 3.37 X10'6 (4.70-6.10); RED CELL DISTRIBUTION WIDTH 13.2 % (11.5-14.5); WHITE BLOOD COUNT 7.8 X10'3 (4.5-11.0)
--- NOTE | 2018-08-07 06:37 | NUR ---
Patient in room PCU 3010. I have received report from Kalia PRATHER and had the opportunity to ask questions and assume patient care.
--- NOTE | 2018-08-07 06:40 | NUR ---
Patient in room PCU 3010. I have received report from Kalia PRATHER and had the opportunity to ask questions and assume patient care. Patient sleeping comfortably, all vitals stable, will continue to monitor.
[2018-08-07 06:45] LABS: INR 1.1 INR; PARTIAL THROMBOPLASTIN TIME 38 SECONDS (22-32)
[2018-08-07] MEDS ORDERED: carvedilol 6.25mg tablet PO SCH (08:00)
[2018-08-07] MEDS ORDERED: lisinopril 2.5mg tablet PO SCH (08:00)
[2018-08-07] MEDS ORDERED: enoxaparin 40mg/0.4ml syringe SUBCUT SCH (08:00)
[2018-08-07] MEDS ORDERED: potassium chloride 10mEq ER tablet PO SCH (08:00)
--- NOTE | 2018-08-07 08:02 | NUR ---
Paged Dr. Kruse: PAGER ID: [phone] MESSAGE: Radha ENRIQUE [phone]. RE: Edmundo Best [phone]. Patient complains of chest pain. Troponins 0.15 / 0.23 / 0.26 / 0.26. Patient was cardioverted in ED this morning. Tele monitoring currently A/V paced with occasional PVC's. Please advise.
[2018-08-07] MEDS ORDERED: nitroGLYCERIN 0.4mg SUBLingual tab SL PRN ×2 (08:05→09:05)
[2018-08-07] MEDS ORDERED: aspirin 81mg tab.chew PO ONE (08:05)
--- NOTE | 2018-08-07 08:07 | NUR ---
New Orders from Dr. Kruse: Stat 12 lead EKG, Aspirin 81 mg PO Once, Nitro 0.4 mg SL Q5 min PRN chest pain.
--- NOTE | 2018-08-07 08:43 | NUR ---
New order per Dr. Kruse: [place] 5 PO Q4H PRN pain.
[2018-08-07] MEDS ORDERED: carVEDilol 12.5mg tablet PO SCH (09:00)
[2018-08-07] MEDS ORDERED: aminophylline 250mg/10ml inj. IV PRN (09:05)
[2018-08-07] MEDS ORDERED: metoprolol tartrate 1mg/ml inj IV PRN (09:05)
[2018-08-07] MEDS ORDERED: regadenoson 0.4mg/5ml syringe IV ONE ×2 (09:05→15:11)
[2018-08-07] MEDS: HYDROcodone/acetaminophen 5mg/325mg tablet PO PRN ×3 (09:17→17:39)
--- NOTE | 2018-08-07 14:12 | NUR ---
Patient to Lb
[2018-08-07] MEDS ORDERED: aminophylline inj. 10 ML IV ONE (15:11)
--- NOTE | 2018-08-07 16:03 | NUR ---
Patient back from [facility].
--- NOTE | 2018-08-07 16:44 | NUR ---
Paged Dr. Kruse: PAGER ID: [phone] MESSAGE: Radha NUNEZ [phone]. RE: Edmundo Best [phone]. FYI - Results from [employer] are back. Thank you.
--- NOTE | 2018-08-07 18:05 | NUR ---
PAGER ID: [phone] MESSAGE: Radha U [phone]. RE: Edmundo Best [phone]. Patient asking if he will be d/c today. He is concerned about appointment he has tomorrow to have ureteral stents removed. Thank you Dr. Kruse.
[2018-08-07] MEDS ORDERED: CARV-50 PO (18:08)
[2018-08-07] MEDS ORDERED: APIX5TAB3 PO (18:09)
--- NOTE | 2018-08-07 18:30 | NUR ---
Problems reprioritized. Patient report given, questions answered & plan of care reviewed with Abigail PRATHER.
--- NOTE | 2018-08-07 19:10 | NUR ---
Patient stable for discharger per MD orders. All discharge instructions reviewed with patient and all questions answered. New prescriptions called into [facility] in [place]. Patient to begin PO Eliquis after ureteral stent removed tomorrow. Patient to follow up with Dr. Gonzalez in 1 week. 2 PIV discontinued - cannulas intact. Telemetry monitoring discontinued. All belongings sent with patient in private vehicle to home. Patient wheeled to lobby by [facility].
[2018-08-07] MEDS ORDERED: atorvastatin 20mg tablet PO SCH (21:00)
[2018-08-07] MEDS ORDERED: zolpidem 5mg tablet PO PRN (21:00)
[2018-08-07] MEDS ORDERED: fenofibrate 145mg tablet PO SCH (21:00)
== END 2018-08-07 19:16 | disposition home or self-care (01) ==
LOC: ER 16:53 → PCU 3S 08-07 05:37 → CMPBEDREQ 08-07 05:42
PROVIDERS: ADMIT Internal Medicine; ATTEND Family Medicine
DX: R07.2 Precordial pain (principal); R00.2 Palpitations; E78.00 Pure hypercholesterolemia, unspecified; G47.30 Sleep apnea, unspecified; I10 Essential (primary) hypertension; I25.10 Atherosclerotic heart disease of native coronary artery without angina pectoris; I25.2 Old myocardial infarction; J44.9 Chronic obstructive pulmonary disease, unspecified; I48.91 Unspecified atrial fibrillation; Z87.442 Personal history of urinary calculi; Z79.899 Other long term (current) drug therapy; Z95.1 Presence of aortocoronary bypass graft
CPT/HCPCS: 36415; 71045; 78452; 80053; 83735; 83880; 84132; 84145; 84484; 85025; 85610; 85730; 87070; 92960; 93005; 93017; 94760; 96365; 96366; 96367; 96372; 96375; 96376; 99284; A9500; G0378; J0280; J1644; J2060; J3010; J3475; J7030; 99285; J1650; J3490

== ENCOUNTER 2018-09-06 18:34 | Emergency (ER) | payer MEDICAID ==
[~2018-09-06] VITALS: Ht 180.3 cm; Wt 106.4 kg
[~2018-09-06 18:34] MED LIST changes: -AMIT-106 PO; +APIX5TAB3 PO; -CARV-49 PO; +CARV-50 PO; -CIPR-230 PO; +FLO0.4C PO; +ONDA4TAB6 PO; -OXYB5TAB11 PO
--- NOTE | 2018-09-06 19:21 | NUR ---
DR. MURGUIA UPDATED OF PT AND THAT [facility] PROTOCOL ORDERED. SHE REQUESTS TO CALL [facility] FOR INTERROGATION. CALL PLACED TO [facility] FOR STAT INTERROGATION,. , AWATING A CALL BACK FOR ETA
[2018-09-06 19:30] LABS: BASOPHILS # (AUTO) 0.1 X10'3 (0-0.2); BASOPHILS % (AUTO) 1.2 % (0-1); EOSINOPHILS # (AUTO) 0.5 X10'3 (0-0.9); HEMATOCRIT 30.6 % (42.0-52.0); HEMOGLOBIN 10.4 g/dl (14.0-17.9); LYMPHOCYTES # (AUTO) 1.4 X10'3 (1.1-4.8); MEAN CORPUSCULAR HEMOGLOBIN 29.2 PG (27.0-31.0); MEAN CORPUSCULAR HGB CONC 34.2 g/dL (33.0-36.5); MEAN CORPUSCULAR VOLUME 85.5 FL (78-98); MEAN PLATELET VOLUME 9.1 FL (7.4-10.4); MONOCYTES # (AUTO) 1.1 X10'3 (0-0.9); MONOCYTES % (AUTO) 17.1 % (2-12); NEUTROPHILS # (AUTO) 3.2 X10'3 (1.8-7.7); NEUTROPHILS % (AUTO) 51.7 % (42-75); PLATELET COUNT 184 X10'3 (140-440); RED BLOOD COUNT 3.58 X10'6 (4.70-6.10); RED CELL DISTRIBUTION WIDTH 13.7 % (11.5-14.5); WHITE BLOOD COUNT 6.2 X10'3 (4.5-11.0)
[2018-09-06 19:41] LABS: ALANINE AMINOTRANSFERASE 38 U/L (12-78); ALBUMIN 2.8 G/DL (3.4-5.0); ALBUMIN/GLOBULIN RATIO 0.8 (1.1-1.5); ALKALINE PHOSPHATASE 59 IU/L (46-116); ANION GAP 7 (8-16); ASPARTATE AMINO TRANSFERASE 34 U/L (10-37); BILIRUBIN,TOTAL 0.5 MG/DL (0.1-1.0); BLOOD UREA NITROGEN 19 MG/DL (7-18); BUN/CREATININE RATIO 18.4 (5.4-32.0); CALCIUM 8.6 MG/DL (8.5-10.1); CHLORIDE 107 MMOL/L (99-107); CREATININE 1.03 MG/DL (0.60-1.10); GLUCOSE 121 MG/DL (70-104); SODIUM 138 MMOL/L (135-145); TOTAL CARBON DIOXIDE 23.8 MMOL/L (24-32); TOTAL PROTEIN 6.1 G/DL (6.4-8.2); eGFR 76 ML/MIN
--- NOTE | 2018-09-06 19:41 | NUR ---
[employer] REP TO BE HERE IN ABOUT 20 MINUTES FOR EVALUATION. PROVIDER UPDATED.
[2018-09-06 19:45] LABS: PARTIAL THROMBOPLASTIN TIME 30 SECONDS (22-32)
--- NOTE | 2018-09-06 20:00 | NUR ---
[employer] REP NOW AT BEDSIDE MAKING ADJUSTMENTS. PT REPORTING IMPROVEMENTS TO HIS SYMPTOMS.
[2018-09-06 21:02] VITALS: BP 115/82
== END 2018-09-06 21:05 | disposition home or self-care (01) ==
LOC: ER 18:34
DX: T82.897A Other specified complication of cardiac prosthetic devices, implants and grafts, initial encounter (principal); I48.91 Unspecified atrial fibrillation; I25.10 Atherosclerotic heart disease of native coronary artery without angina pectoris; I10 Essential (primary) hypertension; I25.2 Old myocardial infarction; Z87.442 Personal history of urinary calculi; Z98.61 Coronary angioplasty status; Z95.0 Presence of cardiac pacemaker; Z95.1 Presence of aortocoronary bypass graft; Z98.890 Other specified postprocedural states; Z88.0 Allergy status to penicillin; Z79.899 Other long term (current) drug therapy; Y83.8 Other surgical procedures as the cause of abnormal reaction of the patient, or of later complication, without mention of misadventure at the time of the procedure; Y92.89 Other specified places as the place of occurrence of the external cause
CPT/HCPCS: 36415; 71045; 80053; 84484; 85025; 85610; 85730; 93005; 99284

== ENCOUNTER 2018-12-12 17:34 | Emergency (ER) | payer MEDICAID ==
[~2018-12-12] VITALS: Ht 180.3 cm; Wt 108.2 kg
[~2018-12-12 17:34] MED LIST changes: -FLO0.4C PO
[2018-12-12 17:40] VITALS: BP 110/61
[2018-12-12] MEDS ORDERED: CEPH-572 PO (18:48)
== END 2018-12-12 18:51 | disposition home or self-care (01) ==
LOC: ER 17:34
DX: L03.115 Cellulitis of right lower limb (principal); M25.561 Pain in right knee; I48.91 Unspecified atrial fibrillation; I25.10 Atherosclerotic heart disease of native coronary artery without angina pectoris; I10 Essential (primary) hypertension; I25.2 Old myocardial infarction; Z95.5 Presence of coronary angioplasty implant and graft; Z95.1 Presence of aortocoronary bypass graft; Z95.0 Presence of cardiac pacemaker; Z98.890 Other specified postprocedural states; Z88.0 Allergy status to penicillin; Z79.899 Other long term (current) drug therapy
CPT/HCPCS: 99283

== ENCOUNTER 2019-04-22 15:10 | Inpatient (IN) | payer MEDICAID ==
[~2019-04-22] VITALS: Ht 175.3 cm; Wt 100.0 kg
[2019-04-22] MEDS ORDERED: ondansetron/PF 4mg/2ml inj IV ONE (15:30)
[2019-04-22] MEDS ORDERED: normal saline 1000ML IV soln IV ONE (15:30)
[2019-04-22] MEDS ORDERED: pantoprazole IV 80 MG in normal saline 100ml IV soln 100 ML IV ONE (15:30)
[2019-04-22] MEDS ORDERED: pantoprazole 40MG/NS 100ML BAG 100 ML IV ONE (15:40)
[2019-04-22] MEDS: morphine 4 MG/ML inj SYRINge IV PRN ×3 (15:47→23:45)
[2019-04-22 15:56] LABS: BASOPHILS # (AUTO) 0.2 X10'3 (0-0.2); BASOPHILS % (AUTO) 1.7 % (0-1); EOSINOPHILS # (AUTO) 0.6 X10'3 (0-0.9); EOSINOPHILS % (AUTO) 6.1 % (0-6); HEMATOCRIT 39.4 % (42.0-52.0); HEMOGLOBIN 13.5 g/dl (14.0-17.9); LYMPHOCYTES # (AUTO) 1.9 X10'3 (1.1-4.8); LYMPHOCYTES % (AUTO) 19.9 % (21-51); MEAN CORPUSCULAR HEMOGLOBIN 31.5 PG (27.0-31.0); MEAN CORPUSCULAR HGB CONC 34.4 g/dL (33.0-36.5); MEAN CORPUSCULAR VOLUME 91.6 FL (78-98); MEAN PLATELET VOLUME 8.5 FL (7.4-10.4); MONOCYTES # (AUTO) 0.9 X10'3 (0-0.9); MONOCYTES % (AUTO) 9.2 % (2-12); NEUTROPHILS # (AUTO) 6.2 X10'3 (1.8-7.7); NEUTROPHILS % (AUTO) 63.1 % (42-75); PLATELET COUNT 302 X10'3 (140-440); RED CELL DISTRIBUTION WIDTH 13.2 % (11.5-14.5); WHITE BLOOD COUNT 9.8 X10'3 (4.5-11.0)
[2019-04-22 16:07] LABS: ALANINE AMINOTRANSFERASE 35 U/L (12-78); ALBUMIN 3.6 G/DL (3.4-5.0); ALBUMIN/GLOBULIN RATIO 1.1 (1.1-1.5); ALKALINE PHOSPHATASE 49 IU/L (46-116); ANION GAP 8 (8-16); ASPARTATE AMINO TRANSFERASE 32 U/L (10-37); BILIRUBIN,TOTAL 0.3 MG/DL (0.1-1.0); BLOOD UREA NITROGEN 20 MG/DL (7-18); BUN/CREATININE RATIO 17.7 (5.4-32.0); CHLORIDE 110 MMOL/L (99-107); CREATININE 1.13 MG/DL (0.60-1.10); GLUCOSE 97 MG/DL (70-104); LIPASE 184 U/L (73-393); POTASSIUM 4.1 MMOL/L (3.5-5.1); SODIUM 145 MMOL/L (135-145); TOTAL CARBON DIOXIDE 27.4 MMOL/L (24-32); TOTAL PROTEIN 6.8 G/DL (6.4-8.2); eGFR 68 ML/MIN
[2019-04-22] MEDS ORDERED: APIX5TAB3 PO (17:01)
[2019-04-22] MEDS ORDERED: CARV-50 PO (17:02)
[2019-04-22] MEDS ORDERED: diphenhydrAMINE 50 mg/ml inj IV PRN (17:15)
[2019-04-22] MEDS ORDERED: magnesium hydroxide 30ml (MOM) UD suspension PO PRN (17:15)
[2019-04-22] MEDS ORDERED: magnesium Cl slow-release 64mg tablet PO PRN (17:15)
[2019-04-22] MEDS ORDERED: mag hydrox/Alum hydrox/simeth 30ml oral suspension PO PRN (17:15)
[2019-04-22] MEDS ORDERED: magnesium 4gm in 100ml NS 100 ML IV PRN (17:15)
[2019-04-22] MEDS ORDERED: diphenhydrAMINE 25mg capsule PO PRN (17:15)
[2019-04-22] MEDS ORDERED: magnesium 2GM in 50ml NS 50 ML IV PRN (17:15)
[2019-04-22] MEDS ORDERED: potassium Cl 20 mEq SR tablet PO PRN ×2 (17:15)
[2019-04-22] MEDS ORDERED: potassium CL 10mEq/100ml bag 100 ML IV PRN ×2 (17:15)
[2019-04-22] MEDS ORDERED: ondansetron/PF 4mg/2ml inj IV PRN (17:15)
[2019-04-22] MEDS ORDERED: metoclopramide 5 mg/ml inj IV PRN (17:15)
[2019-04-22] MEDS ORDERED: HYDROcodone/acetaminophen 5mg/325mg tablet PO PRN (17:15)
[2019-04-22] MEDS ORDERED: bisacodyl 10mg suppository rectal RC PRN (17:15)
[2019-04-22] MEDS ORDERED: acetaminophen 325mg tablet PO PRN ×2 (17:15)
[2019-04-22] MEDS: normal saline 1000ml 1,000 ML IV SCH (18:37)
[2019-04-22 19:08] LABS: CLARITY,URINE CLEAR (Clear); COLOR,URINE YELLOW (Yellow); GLUCOSE, URINE NEGATIVE (Neg); KETONES,URINE NEGATIVE (Neg); LEUKOCYTE ESTERASE ,URINE NEGATIVE (Neg); NITRITES, URINE NEGATIVE (Neg); OCCULT BLOOD,URINE NEGATIVE (Neg); PROTEIN,URINE NEGATIVE (Neg); UROBILINOGEN,URINE 0.2 E.U/dL (0.2-1.0)
[2019-04-22 19:12] LABS: UA COLLECTION TYPE CLN CATCH MIDSTREAM
[2019-04-22] MEDS ORDERED: zolpidem 5mg tablet PO SCH (19:35)
[2019-04-22] MEDS: K and/or MAG REPLACEMENT MC SCH (20:00)
--- NOTE | 2019-04-22 20:15 | NUR ---
report called to Chantel ochoa no questions or concerns after assuming care, belongings went home with family patient has wedding ring and 2 earings on person
[2019-04-22 20:29] LABS: OCCULT BLOOD STOOL POSITIVE (Neg)
[2019-04-22 20:30] VITALS: BP 111/68
[2019-04-22] MEDS ORDERED: temazepam 15mg capsule PO PRN (21:00)
[2019-04-22] MEDS: carVEDilol 12.5mg tablet PO SCH (21:36)
[2019-04-22] MEDS: potassium chloride 10mEq ER tablet PO SCH (21:36)
[2019-04-22] MEDS: docusate sod 100mg capsule PO SCH (21:36)
[2019-04-22] MEDS: HYDROcodone/acetaminophen 10/325mg tab PO PRN (21:37)
[2019-04-22] MEDS: pantoprazole 40MG/NS 100ML BAG 100 ML IV SCH (21:40)
[2019-04-22] MEDS: atorvastatin 20mg tablet PO SCH (21:40)
--- NOTE | 2019-04-22 22:00 | NUR ---
Problems reprioritized. Patient report given, questions answered & plan of care reviewed with YAMILKA Kan.
[2019-04-22 23:00] VITALS: BP 92/52
[2019-04-23] VITALS (10 sets, daily range): BP systolic 90–129; BP diastolic 49–71
[2019-04-23] MEDS: pantoprazole 40MG/NS 100ML BAG 100 ML IV SCH ×3 (01:00→11:08)
[2019-04-23] MEDS: normal saline 1000ml 1,000 ML IV SCH ×2 (03:22→13:11)
[2019-04-23] MEDS: HYDROcodone/acetaminophen 10/325mg tab PO PRN ×3 (05:26→14:21)
[2019-04-23 06:17] LABS: HEMATOCRIT 36.1 % (42.0-52.0); HEMOGLOBIN 12.5 g/dl (14.0-17.9); MEAN CORPUSCULAR HEMOGLOBIN 31.9 PG (27.0-31.0); MEAN CORPUSCULAR HGB CONC 34.5 g/dL (33.0-36.5); MEAN CORPUSCULAR VOLUME 92.6 FL (78-98); MEAN PLATELET VOLUME 8.5 FL (7.4-10.4); PLATELET COUNT 223 X10'3 (140-440); RED CELL DISTRIBUTION WIDTH 13.6 % (11.5-14.5); WHITE BLOOD COUNT 6.9 X10'3 (4.5-11.0)
[2019-04-23 06:28] LABS: ALBUMIN 3.1 G/DL (3.4-5.0); ANION GAP 6 (8-16); BLOOD UREA NITROGEN 19 MG/DL (7-18); BUN/CREATININE RATIO 16.5 (5.4-32.0); CHLORIDE 109 MMOL/L (99-107); CREATININE 1.15 MG/DL (0.60-1.10); GLUCOSE 85 MG/DL (70-104); MAGNESIUM 1.7 MG/DL (1.5-2.4); PHOSPHORUS 3.5 MG/DL (2.3-4.5); POTASSIUM 3.8 MMOL/L (3.5-5.1); SODIUM 142 MMOL/L (135-145); TOTAL CARBON DIOXIDE 27.5 MMOL/L (24-32); eGFR 67 ML/MIN
[2019-04-23 06:29] LABS: PARTIAL THROMBOPLASTIN TIME 26 SECONDS (22-32)
--- NOTE | 2019-04-23 06:44 | NUR ---
Patient in room PCU 3023. I have received report from YAMILKA Golden and had the opportunity to ask questions and assume patient care. Patient awake in bed and in no acute distress.
[2019-04-23] MEDS: K and/or MAG REPLACEMENT MC SCH ×2 (08:00→20:00)
[2019-04-23] MEDS: carVEDilol 12.5mg tablet PO SCH ×2 (10:05→20:37)
[2019-04-23] MEDS: potassium chloride 10mEq ER tablet PO SCH ×2 (10:06→20:38)
[2019-04-23] MEDS: docusate sod 100mg capsule PO SCH ×2 (10:06→20:37)
[2019-04-23] MEDS: lisinopril 2.5mg tablet PO SCH (10:07)
--- NOTE | 2019-04-23 15:58 | NUR ---
Patient left for EGD.
[2019-04-23] MEDS ORDERED: fentaNYL/PF 50MCG/1 ML 2ML syringe ONE (16:17)
[2019-04-23] MEDS ORDERED: MIDAZolam 5mg/5ml vial ONE ×2 (16:17→17:30)
[2019-04-23] MEDS ORDERED: LIDOcaine Viscous 15ml cup ONE (16:18)
--- NOTE | 2019-04-23 18:17 | NUR ---
Problems reprioritized. Patient report given, questions answered & plan of care reviewed with YAMILKA Gavin. Patient down in GI lab at transfer of care.
--- NOTE | 2019-04-23 18:19 | NUR ---
Patient in room PCU 3023. I have received report from Loreta Ness RN and had the opportunity to ask questions and assume patient care.
--- NOTE | 2019-04-23 18:29 | NUR ---
Patient in room U 3023. I have received report from YAMILKA Finnegan and had the opportunity to ask questions and assume patient care. Addendum: 04/23/19 at 1836 by Leslye Ludwig RN Wrong Nurse. It's Loreta Ness
--- NOTE | 2019-04-23 18:30 | NUR ---
Patient is back in the room from GI lab. Recieved report from YAMILKA Lopes. Vital signs are stable, patient is A&Ox4 and sleepy. Clear liquid diet is coming up.
[2019-04-23] MEDS: atorvastatin 20mg tablet PO SCH (20:37)
[2019-04-23] MEDS: pantoprazole 40mg Tablet.DR PO SCH (20:37)
[2019-04-23] MEDS ORDERED: (Fenofibrate 160 MG) PO SCH (21:00)
[2019-04-23] MEDS ORDERED: fenofibrate 145mg tablet PO SCH (21:00)
[2019-04-24] MEDS: HYDROcodone/acetaminophen 10/325mg tab PO PRN ×2 (01:07→05:20)
[2019-04-24] MEDS: normal saline 1000ml 1,000 ML IV SCH (01:07)
[2019-04-24 02:00] VITALS: BP 103/48
[2019-04-24 05:36] LABS: HEMATOCRIT 35.7 % (42.0-52.0); HEMOGLOBIN 12.2 g/dl (14.0-17.9); MEAN CORPUSCULAR HEMOGLOBIN 31.6 PG (27.0-31.0); MEAN CORPUSCULAR HGB CONC 34.1 g/dL (33.0-36.5); MEAN CORPUSCULAR VOLUME 92.6 FL (78-98); MEAN PLATELET VOLUME 8.2 FL (7.4-10.4); PLATELET COUNT 210 X10'3 (140-440); RED BLOOD COUNT 3.86 X10'6 (4.70-6.10); RED CELL DISTRIBUTION WIDTH 13.5 % (11.5-14.5); WHITE BLOOD COUNT 5.7 X10'3 (4.5-11.0)
[2019-04-24 05:47] LABS: PARTIAL THROMBOPLASTIN TIME 25 SECONDS (22-32)
[2019-04-24 06:00] VITALS: BP 106/64
[2019-04-24 06:09] LABS: ALBUMIN 3.1 G/DL (3.4-5.0); ANION GAP 9 (8-16); BLOOD UREA NITROGEN 15 MG/DL (7-18); CALCIUM 8.6 MG/DL (8.5-10.1); CHLORIDE 110 MMOL/L (99-107); GLUCOSE 86 MG/DL (70-104); MAGNESIUM 1.8 MG/DL (1.5-2.4); PHOSPHORUS 3.8 MG/DL (2.3-4.5); POTASSIUM 4.1 MMOL/L (3.5-5.1); SODIUM 146 MMOL/L (135-145); TOTAL CARBON DIOXIDE 26.7 MMOL/L (24-32); eGFR 79 ML/MIN
--- NOTE | 2019-04-24 06:24 | NUR ---
Problems reprioritized. Patient report given, questions answered & plan of care reviewed with YAMILKA Trinidad.
--- NOTE | 2019-04-24 06:44 | NUR ---
Patient in room PCU 3023. I have received report from Leslye PRATHER and had the opportunity to ask questions and assume patient care.
[2019-04-24] MEDS: potassium chloride 10mEq ER tablet PO SCH (07:32)
[2019-04-24] MEDS: docusate sod 100mg capsule PO SCH (07:32)
[2019-04-24] MEDS: pantoprazole 40mg Tablet.DR PO SCH (07:32)
[2019-04-24 07:33] VITALS: BP_SYST 106
[2019-04-24] MEDS: K and/or MAG REPLACEMENT MC SCH (07:33)
[2019-04-24] MEDS: carVEDilol 12.5mg tablet PO SCH (07:33)
[2019-04-24] MEDS: lisinopril 2.5mg tablet PO SCH (07:33)
[2019-04-24] MEDS ORDERED: fenofibrate 145mg tablet PO SCH (08:00)
[2019-04-24] MEDS ORDERED: (Fenofibrate 160 MG) PO SCH (08:00)
[2019-04-24] MEDS ORDERED: PANT40TA4 PO (08:30)
--- NOTE | 2019-04-24 10:54 | NUR ---
pt is stable for discharge per md orders, discharge instructions reviewed w/ pt and spouse all questions answered, new med prescription called in to [facility] [place] per pt preference, returned home meds from pharmacy, tele monitor 53 returned, PIV dc'ed and clean dry dressing in place, pt discharged from unit @ 1000, walked down to lobby with hospital staff and spouse to private vehicle, all belongings with pt at time of discharge
== END 2019-04-24 10:15 | disposition home or self-care (01) | DRG 241 ==
LOC: ER 15:10 → ED HOLD 17:28 → PCU 3S 20:30
PROVIDERS: ADMIT Family Medicine; ATTEND Family Medicine
PROC: 0DB68ZX Excision of Stomach, Via Natural or Artificial Opening Endoscopic, Diagnostic (ICD-10-PCS; principal; 2019-04-23)
DX: K25.4 Chronic or unspecified gastric ulcer with hemorrhage (principal); I11.0 Hypertensive heart disease with heart failure; I50.22 Chronic systolic (congestive) heart failure; E78.5 Hyperlipidemia, unspecified; G47.30 Sleep apnea, unspecified; I48.91 Unspecified atrial fibrillation; K22.2 Esophageal obstruction; F41.9 Anxiety disorder, unspecified; I25.10 Atherosclerotic heart disease of native coronary artery without angina pectoris; K29.70 Gastritis, unspecified, without bleeding; K44.9 Diaphragmatic hernia without obstruction or gangrene; Z79.01 Long term (current) use of anticoagulants; Z79.82 Long term (current) use of aspirin; Z82.5 Family history of asthma and other chronic lower respiratory diseases; Z87.442 Personal history of urinary calculi; I25.2 Old myocardial infarction; Z95.1 Presence of aortocoronary bypass graft; Z95.5 Presence of coronary angioplasty implant and graft; Z88.0 Allergy status to penicillin; Z95.0 Presence of cardiac pacemaker
CPT/HCPCS: 36415; 43239; 71045; 74176; 80048; 80053; 81003; 82272; 83690; 83735; 84100; 85025; 85027; 85610; 85730; 86885; 86900; 86901; 87081; 93005; 96374; 96375; 99152; 99153; 99285; A4620; C9113; G0378; J2250; J2270; J2405; J3010; J7030; J7040

== ENCOUNTER 2020-06-24 21:34 | Inpatient (IN) | payer MEDICAID ==
[~2020-06-24] VITALS: Ht 180.3 cm; Wt 117.6 kg
[~2020-06-24 21:34] MED LIST changes: -ONDA4TAB6 PO; +PANT40TA54 PO
--- NOTE | 2020-06-24 21:52 | NUR ---
[employer] PACEMAKER OVER 6 YEARS OLD UNSURE OF LAST INTERROGATION REPORTED BY PATIENT
[2020-06-24 22:01] LABS: BASOPHILS # (AUTO) 0.1 X10'3 (0-0.2); BASOPHILS % (AUTO) 1.1 % (0-1); EOSINOPHILS # (AUTO) 0.5 X10'3 (0-0.9); EOSINOPHILS % (AUTO) 7.3 % (0-6); HEMATOCRIT 36.4 % (42.0-52.0); HEMOGLOBIN 12.1 g/dl (14.0-17.9); LYMPHOCYTES # (AUTO) 1.6 X10'3 (1.1-4.8); LYMPHOCYTES % (AUTO) 23.2 % (21-51); MEAN CORPUSCULAR HEMOGLOBIN 31.2 PG (27.0-31.0); MEAN CORPUSCULAR HGB CONC 33.4 g/dL (33.0-36.5); MEAN CORPUSCULAR VOLUME 93.6 FL (78-98); MEAN PLATELET VOLUME 8.6 FL (7.4-10.4); MONOCYTES # (AUTO) 0.7 X10'3 (0-0.9); MONOCYTES % (AUTO) 10.7 % (2-12); NEUTROPHILS # (AUTO) 3.9 X10'3 (1.8-7.7); NEUTROPHILS % (AUTO) 57.7 % (42-75); PLATELET COUNT 230 X10'3 (140-440); RED BLOOD COUNT 3.89 X10'6 (4.70-6.10); RED CELL DISTRIBUTION WIDTH 13.1 % (11.5-14.5); WHITE BLOOD COUNT 6.7 X10'3 (4.5-11.0)
[2020-06-24 22:07] LABS: ALANINE AMINOTRANSFERASE 38 U/L (12-78); ALBUMIN 3.9 G/DL (3.4-5.0); ALBUMIN/GLOBULIN RATIO 1.1 (1.1-1.5); ALKALINE PHOSPHATASE 52 IU/L (46-116); ANION GAP 9 (8-16); ASPARTATE AMINO TRANSFERASE 43 U/L (10-37); BILIRUBIN,TOTAL 0.5 MG/DL (0.1-1.0); BLOOD UREA NITROGEN 34 MG/DL (7-18); BUN/CREATININE RATIO 28.8 (5.4-32.0); CALCIUM 9.9 MG/DL (8.5-10.1); CHLORIDE 104 MMOL/L (99-107); CREATININE 1.18 MG/DL (0.60-1.10); GLUCOSE 100 MG/DL (70-104); SODIUM 140 MMOL/L (135-145); TOTAL CARBON DIOXIDE 27.3 MMOL/L (24-32); TOTAL PROTEIN 7.3 G/DL (6.4-8.2); eGFR 65 ML/MIN
[2020-06-24] MEDS ORDERED: aspirin 81mg tab.chew PO ONE (22:10)
[2020-06-24] MEDS ORDERED: normal saline 1000ML IV soln IVB ONE (22:10)
[2020-06-24] MEDS ORDERED: magnesium 2GM in 50ml NS 50 ML IV PRN (22:40)
[2020-06-24] MEDS ORDERED: ondansetron/PF 4mg/2ml inj IV PRN (22:40)
[2020-06-24] MEDS ORDERED: acetaminophen 325mg tablet PO PRN (22:40)
[2020-06-24] MEDS ORDERED: potassium Cl 40MEQ/1/2NS 520ml 520 ML IV PRN ×2 (22:40)
[2020-06-24] MEDS ORDERED: morphine 2 MG/ML inj. syringe IV PRN (22:40)
[2020-06-24] MEDS ORDERED: magnesium 4gm in 100ml NS 100 ML IV PRN (22:40)
[2020-06-24] MEDS ORDERED: magnesium Cl slow-release 64mg tablet PO PRN (22:40)
[2020-06-24] MEDS ORDERED: potassium Cl 20 mEq SR tablet PO PRN (22:40)
[2020-06-25] VITALS (11 sets, daily range): BP systolic 100–121; BP diastolic 52–69
[2020-06-25 04:21] LABS: BASOPHILS # (AUTO) 0.1 X10'3 (0-0.2); BASOPHILS % (AUTO) 1.2 % (0-1); EOSINOPHILS # (AUTO) 0.5 X10'3 (0-0.9); HEMATOCRIT 35.7 % (42.0-52.0); HEMOGLOBIN 11.8 g/dl (14.0-17.9); LYMPHOCYTES # (AUTO) 1.6 X10'3 (1.1-4.8); LYMPHOCYTES % (AUTO) 28.7 % (21-51); MEAN CORPUSCULAR HEMOGLOBIN 30.9 PG (27.0-31.0); MEAN CORPUSCULAR VOLUME 93.6 FL (78-98); MEAN PLATELET VOLUME 8.6 FL (7.4-10.4); MONOCYTES # (AUTO) 0.6 X10'3 (0-0.9); MONOCYTES % (AUTO) 11.3 % (2-12); NEUTROPHILS # (AUTO) 2.7 X10'3 (1.8-7.7); NEUTROPHILS % (AUTO) 49.8 % (42-75); PLATELET COUNT 194 X10'3 (140-440); RED BLOOD COUNT 3.82 X10'6 (4.70-6.10); RED CELL DISTRIBUTION WIDTH 13.1 % (11.5-14.5); WHITE BLOOD COUNT 5.5 X10'3 (4.5-11.0)
[2020-06-25 04:33] LABS: ALBUMIN 3.4 G/DL (3.4-5.0); ANION GAP 5 (8-16); BLOOD UREA NITROGEN 30 MG/DL (7-18); BUN/CREATININE RATIO 30.6 (5.4-32.0); CALCIUM 8.9 MG/DL (8.5-10.1); CHLORIDE 105 MMOL/L (99-107); CREATININE 0.98 MG/DL (0.60-1.10); GLUCOSE 132 MG/DL (70-104); MAGNESIUM 2.1 MG/DL (1.5-2.4); POTASSIUM 3.4 MMOL/L (3.5-5.1); SODIUM 139 MMOL/L (135-145); TOTAL CARBON DIOXIDE 28.9 MMOL/L (24-32); eGFR 80 ML/MIN
--- NOTE | 2020-06-25 08:01 | NUR ---
Received report from Meera PRATHER in ER. had opportunity to ask questions concerning care and plan of Pt.. Awaiting arrival of Pt to room 6705V
[2020-06-25] MEDS: K and/or MAG REPLACEMENT MC SCH ×2 (08:15→20:00)
[2020-06-25] MEDS: potassium Cl 20 mEq SR tablet PO PRN ×3 (08:22→19:58)
[2020-06-25] MEDS ORDERED: nitroGLYCERIN 0.4mg SUBLingual tab SL PRN (08:30)
[2020-06-25] MEDS ORDERED: regadenoson 0.4mg/5ml syringe IV ONE (08:30)
[2020-06-25] MEDS ORDERED: aminophylline 250mg/10ml inj. IV PRN (08:30)
[2020-06-25] MEDS ORDERED: metoprolol tartrate 1mg/ml inj IV PRN (08:30)
--- NOTE | 2020-06-25 08:30 | NUR ---
Pt arrived to room 3023B. Pt alert and oriented and vitals WNL: 102/55, HR 64, RR 18, 98% RA, 97.8. Will continue to monitor Pt as needed. Awaiting ECHO and Altagracia scan for Pt.
[2020-06-25] MEDS ORDERED: LISI10TA27 PO (10:07)
[2020-06-25] MEDS ORDERED: POTA10CA44 PO (10:08)
--- NOTE | 2020-06-25 13:30 | NUR ---
Pt taken down to [facility] for Altagracia scan.
[2020-06-25] MEDS ORDERED: zolpidem 5mg tablet PO PRN (14:00)
--- NOTE | 2020-06-25 18:15 | NUR ---
Problems reprioritized. Patient report given, questions answered & plan of care reviewed with Elizabeth PRATHER.
--- NOTE | 2020-06-25 18:40 | NUR ---
Patient in room PCU 3023. I have received report from Tony PRATHER and had the opportunity to ask questions and assume patient care.
[2020-06-25] MEDS: apixaban 5mg tablet PO SCH (19:59)
[2020-06-25] MEDS: carVEDilol 12.5mg tablet PO SCH (20:00)
[2020-06-25] MEDS ORDERED: atorvastatin 20mg tablet PO SCH (21:00)
[2020-06-25] MEDS ORDERED: fenofibrate 145mg tablet PO SCH (21:00)
[2020-06-26 02:00] VITALS: BP 96/54
--- NOTE | 2020-06-26 06:49 | NUR ---
Patient in room PCU 3023. I have received report from Elizabeth PRATHER and had the opportunity to ask questions and assume patient care.
[2020-06-26 07:00] VITALS: BP 110/61
[2020-06-26 07:06] LABS: BASOPHILS # (AUTO) 0.1 X10'3 (0-0.2); BASOPHILS % (AUTO) 1.2 % (0-1); EOSINOPHILS # (AUTO) 0.5 X10'3 (0-0.9); EOSINOPHILS % (AUTO) 10.3 % (0-6); HEMATOCRIT 35.8 % (42.0-52.0); HEMOGLOBIN 12.2 g/dl (14.0-17.9); LYMPHOCYTES # (AUTO) 1.5 X10'3 (1.1-4.8); LYMPHOCYTES % (AUTO) 29.7 % (21-51); MEAN CORPUSCULAR HEMOGLOBIN 31.8 PG (27.0-31.0); MEAN CORPUSCULAR HGB CONC 34.2 g/dL (33.0-36.5); MEAN CORPUSCULAR VOLUME 93.1 FL (78-98); MEAN PLATELET VOLUME 8.7 FL (7.4-10.4); MONOCYTES # (AUTO) 0.7 X10'3 (0-0.9); MONOCYTES % (AUTO) 14.2 % (2-12); NEUTROPHILS # (AUTO) 2.2 X10'3 (1.8-7.7); NEUTROPHILS % (AUTO) 44.6 % (42-75); PLATELET COUNT 202 X10'3 (140-440); RED BLOOD COUNT 3.84 X10'6 (4.70-6.10); RED CELL DISTRIBUTION WIDTH 12.8 % (11.5-14.5)
--- NOTE | 2020-06-26 07:32 | NUR ---
Problems reprioritized. Patient report given, questions answered & plan of care reviewed with Scott PRATHER.
[2020-06-26 07:33] LABS: ALBUMIN 3.4 G/DL (3.4-5.0); ANION GAP 5 (8-16); BLOOD UREA NITROGEN 17 MG/DL (7-18); BUN/CREATININE RATIO 21.8 (5.4-32.0); CALCIUM 8.8 MG/DL (8.5-10.1); CHLORIDE 105 MMOL/L (99-107); CREATININE 0.78 MG/DL (0.60-1.10); GLUCOSE 120 MG/DL (70-104); MAGNESIUM 1.9 MG/DL (1.5-2.4); POTASSIUM 4.4 MMOL/L (3.5-5.1); SODIUM 138 MMOL/L (135-145); eGFR > 90 ML/MIN
[2020-06-26] MEDS ORDERED: lisinopril 10 MG tablet PO SCH (08:00)
[2020-06-26] MEDS: K and/or MAG REPLACEMENT MC SCH (08:00)
[2020-06-26] MEDS: apixaban 5mg tablet PO SCH (09:07)
[2020-06-26] MEDS: carVEDilol 12.5mg tablet PO SCH (09:07)
[2020-06-26 11:00] VITALS: BP 93/49
--- NOTE | 2020-06-26 12:42 | NUR ---
Patient OK to discharge per mD orders. Patient was able to dress self and gathered all his thing together. All discharge instructions were gone over and all questions answered as erll, PIV removed, pt tolerated well, tele box removed and it away. Patient was able to walk down to main lobbw w/ and escorted into a private vehicle. Pt did not have any new medications and the plan was to check in with [facility] 1-2 weeks, All items were collected ans set with patient..
[2020-06-26] MEDS ORDERED: NITR0.4T51 SL (17:09)
== END 2020-06-26 12:40 | disposition home or self-care (01) | DRG 198 ==
LOC: ER 21:34 → ED HOLD 22:37 → PCU 3S 06-25 08:37
PROVIDERS: ADMIT Internal Medicine; ATTEND Internal Medicine
PROC: 4A02XM4 Measurement of Cardiac Total Activity, External Approach (ICD-10-PCS; principal; 2020-06-25)
PROC: 3E073KZ Introduction of Other Diagnostic Substance into Coronary Artery, Percutaneous Approach (ICD-10-PCS; 2020-06-25)
DX: I25.119 Atherosclerotic heart disease of native coronary artery with unspecified angina pectoris (principal); E78.5 Hyperlipidemia, unspecified; I11.0 Hypertensive heart disease with heart failure; I48.0 Paroxysmal atrial fibrillation; G47.33 Obstructive sleep apnea (adult) (pediatric); I50.22 Chronic systolic (congestive) heart failure; Z79.01 Long term (current) use of anticoagulants; Z82.49 Family history of ischemic heart disease and other diseases of the circulatory system; Z82.5 Family history of asthma and other chronic lower respiratory diseases; I25.2 Old myocardial infarction; Z83.3 Family history of diabetes mellitus; Z86.79 Personal history of other diseases of the circulatory system; Z87.442 Personal history of urinary calculi; Z87.891 Personal history of nicotine dependence; Z95.1 Presence of aortocoronary bypass graft; Z95.810 Presence of automatic (implantable) cardiac defibrillator; Z88.0 Allergy status to penicillin; Z79.899 Other long term (current) drug therapy; Z79.82 Long term (current) use of aspirin
CPT/HCPCS: 36415; 71045; 78452; 80048; 80053; 83735; 83880; 84484; 85025; 87081; 93005; 93017; 93306; 93308; 96360; 99285; A9500; G0378; J2785; J7030

== ENCOUNTER 2021-01-18 07:37 | Emergency (ER) | payer MEDICAID ==
[~2021-01-18] VITALS: Ht 180.3 cm; Wt 122.8 kg
[~2021-01-18 07:37] MED LIST changes: +LISI10TA27 PO; -LISI2.5T2 PO; -PANT40TA54 PO; +POTA10CA44 PO; -POTA10TA19 PO
[2021-01-18 08:55] LABS: BASOPHILS # (AUTO) 0.1 X10'3 (0-0.2); EOSINOPHILS # (AUTO) 0.4 X10'3 (0-0.9); EOSINOPHILS % (AUTO) 6.1 % (0-6); HEMATOCRIT 36.9 % (42.0-52.0); HEMOGLOBIN 12.1 g/dl (14.0-17.9); LYMPHOCYTES # (AUTO) 1.1 X10'3 (1.1-4.8); LYMPHOCYTES % (AUTO) 15.1 % (21-51); MEAN CORPUSCULAR HEMOGLOBIN 30.9 PG (27.0-31.0); MEAN CORPUSCULAR HGB CONC 32.9 g/dL (33.0-36.5); MEAN CORPUSCULAR VOLUME 93.9 FL (78-98); MEAN PLATELET VOLUME 8.5 FL (7.4-10.4); MONOCYTES # (AUTO) 0.6 X10'3 (0-0.9); MONOCYTES % (AUTO) 8.4 % (2-12); NEUTROPHILS # (AUTO) 5.1 X10'3 (1.8-7.7); NEUTROPHILS % (AUTO) 69.4 % (42-75); PLATELET COUNT 239 X10'3 (140-440); RED BLOOD COUNT 3.93 X10'6 (4.70-6.10); RED CELL DISTRIBUTION WIDTH 13.5 % (11.5-14.5); WHITE BLOOD COUNT 7.3 X10'3 (4.5-11.0)
[2021-01-18 09:09] LABS: ALANINE AMINOTRANSFERASE 37 U/L (12-78); ALBUMIN 3.5 G/DL (3.4-5.0); ALBUMIN/GLOBULIN RATIO 0.9 (1.1-1.5); ALKALINE PHOSPHATASE 43 IU/L (46-116); ANION GAP 5 (8-16); ASPARTATE AMINO TRANSFERASE 33 U/L (10-37); BILIRUBIN,TOTAL 0.4 MG/DL (0.1-1.0); BLOOD UREA NITROGEN 25 MG/DL (7-18); BUN/CREATININE RATIO 21.7 (5.4-32.0); CHLORIDE 105 MMOL/L (99-107); CREATININE 1.15 MG/DL (0.60-1.10); GLUCOSE 151 MG/DL (70-104); POTASSIUM 4.6 MMOL/L (3.5-5.1); SODIUM 139 MMOL/L (135-145); TOTAL CARBON DIOXIDE 29.3 MMOL/L (24-32); TOTAL PROTEIN 7.4 G/DL (6.4-8.2); eGFR 67 ML/MIN
--- NOTE | 2021-01-18 09:30 | NUR ---
RECEIVED VO FROM ED MD GROSSMAN, NO NEED FOR IV START AT THIS TIME
--- NOTE | 2021-01-18 09:39 | NUR ---
[employer] WAS CALLED THE REP WILL BE CALLING US BACK SHORTLY
[2021-01-18 14:46] VITALS: BP 123/64
--- NOTE | 2021-01-18 15:05 | NUR ---
Pt given and understands d/c instructions. Ambulatory with a steady gait.
== END 2021-01-18 15:05 | disposition home or self-care (01) ==
LOC: ER 07:37
DX: R07.89 Other chest pain (principal); R42 Dizziness and giddiness; R06.02 Shortness of breath; N17.9 Acute kidney failure, unspecified; R00.2 Palpitations; I25.10 Atherosclerotic heart disease of native coronary artery without angina pectoris; I10 Essential (primary) hypertension; I25.2 Old myocardial infarction; G47.30 Sleep apnea, unspecified; Z95.0 Presence of cardiac pacemaker; Z79.01 Long term (current) use of anticoagulants; Z88.0 Allergy status to penicillin; Z79.2 Long term (current) use of antibiotics; Z79.899 Other long term (current) drug therapy; Z87.442 Personal history of urinary calculi; Z95.5 Presence of coronary angioplasty implant and graft
CPT/HCPCS: 36415; 71045; 80053; 83880; 84484; 85025; 93005; 99285

== ENCOUNTER 2022-04-18 08:49 | Emergency (ER) | payer MEDICAID ==
[~2022-04-18] VITALS: Ht 180.3 cm; Wt 129.0 kg
[~2022-04-18 08:49] MED LIST changes: -POTA10CA44 PO; +POTA10CA45 PO
[2022-04-18 11:11] LABS: BASOPHILS # (AUTO) 0.1 X10'3 (0-0.2); EOSINOPHILS # (AUTO) 0.5 X10'3 (0-0.9); EOSINOPHILS % (AUTO) 6.3 % (0-6); HEMATOCRIT 29.2 % (42.0-52.0); HEMOGLOBIN 9.5 g/dl (14.0-17.9); LYMPHOCYTES # (AUTO) 1.1 X10'3 (1.1-4.8); LYMPHOCYTES % (AUTO) 15.6 % (21-51); MEAN CORPUSCULAR HEMOGLOBIN 27.1 PG (27.0-31.0); MEAN CORPUSCULAR HGB CONC 32.5 g/dL (33.0-36.5); MEAN CORPUSCULAR VOLUME 83.4 FL (78-98); MEAN PLATELET VOLUME 9.2 FL (7.4-10.4); MONOCYTES # (AUTO) 0.9 X10'3 (0-0.9); MONOCYTES % (AUTO) 12.7 % (2-12); NEUTROPHILS # (AUTO) 4.6 X10'3 (1.8-7.7); NEUTROPHILS % (AUTO) 64.4 % (42-75); PLATELET COUNT 206 X10'3 (140-440); RED CELL DISTRIBUTION WIDTH 15.2 % (11.5-14.5); WHITE BLOOD COUNT 7.2 X10'3 (4.5-11.0)
[2022-04-18 11:32] LABS: ALANINE AMINOTRANSFERASE 41 U/L (12-78); ALBUMIN 3.2 G/DL (3.4-5.0); ALKALINE PHOSPHATASE 32 IU/L (46-116); ANION GAP 5 (8-16); ASPARTATE AMINO TRANSFERASE 50 U/L (10-37); BILIRUBIN,TOTAL 0.9 MG/DL (0.1-1.0); BLOOD UREA NITROGEN 38 MG/DL (7-18); BUN/CREATININE RATIO 27.9 (5.4-32.0); CALCIUM 8.9 MG/DL (8.5-10.1); CHLORIDE 105 MMOL/L (99-107); CREATININE 1.36 MG/DL (0.60-1.10); GLUCOSE 133 MG/DL (70-104); POTASSIUM 3.9 MMOL/L (3.5-5.1); SODIUM 142 MMOL/L (135-145); TOTAL CARBON DIOXIDE 31.8 MMOL/L (24-32); TOTAL PROTEIN 6.4 G/DL (6.4-8.2); eGFR 55 ML/MIN
[2022-04-18 11:59] VITALS: BP 114/76
--- NOTE | 2022-04-18 12:16 | NUR ---
Family came and told registration that patient had a blood transfusion at [facility] last week.
[2022-04-18] MEDS ORDERED: furosemide 20MG tablet PO ONE (12:20)
[2022-04-18] MEDS ORDERED: FURO-150 PO (12:56)
== END 2022-04-18 13:42 | disposition home or self-care (01) ==
LOC: ER 08:50
DX: R60.9 Edema, unspecified (principal); D64.9 Anemia, unspecified; R06.02 Shortness of breath; R07.89 Other chest pain; I48.91 Unspecified atrial fibrillation; I25.10 Atherosclerotic heart disease of native coronary artery without angina pectoris; I10 Essential (primary) hypertension; I25.2 Old myocardial infarction; Z87.442 Personal history of urinary calculi; Z95.0 Presence of cardiac pacemaker; Z98.890 Other specified postprocedural states; Z88.0 Allergy status to penicillin; Z79.899 Other long term (current) drug therapy
CPT/HCPCS: 36415; 71045; 80053; 83880; 84484; 85025; 93005; 99285

== ENCOUNTER 2022-05-09 07:32 | Inpatient (IN) | payer MEDICAID ==
[~2022-05-09] VITALS: Ht 175.3 cm; Wt 116.6 kg
[~2022-05-09 07:32] MED LIST changes: +FURO-150 PO
[2022-05-09] MEDS ORDERED: furosemide 40mg/4ml inj IV ONE (08:10)
[2022-05-09 08:47] LABS: BASOPHILS # (AUTO) 0.1 X10'3 (0-0.2); BASOPHILS % (AUTO) 1.1 % (0-1); EOSINOPHILS # (AUTO) 0.4 X10'3 (0-0.9); EOSINOPHILS % (AUTO) 7.9 % (0-6); HEMATOCRIT 27.7 % (42.0-52.0); HEMOGLOBIN 8.7 g/dl (14.0-17.9); LYMPHOCYTES # (AUTO) 0.8 X10'3 (1.1-4.8); LYMPHOCYTES % (AUTO) 14.2 % (21-51); MEAN CORPUSCULAR HEMOGLOBIN 25.5 PG (27.0-31.0); MEAN CORPUSCULAR HGB CONC 31.6 g/dL (33.0-36.5); MEAN CORPUSCULAR VOLUME 80.8 FL (78-98); MEAN PLATELET VOLUME 9.3 FL (7.4-10.4); MONOCYTES # (AUTO) 0.6 X10'3 (0-0.9); MONOCYTES % (AUTO) 11.5 % (2-12); NEUTROPHILS # (AUTO) 3.6 X10'3 (1.8-7.7); NEUTROPHILS % (AUTO) 65.3 % (42-75); PLATELET COUNT 175 X10'3 (140-440); RED BLOOD COUNT 3.42 X10'6 (4.70-6.10); RED CELL DISTRIBUTION WIDTH 16.9 % (11.5-14.5); WHITE BLOOD COUNT 5.6 X10'3 (4.5-11.0)
[2022-05-09 08:49] LABS: APTT 34 SECONDS (22-32)
[2022-05-09 09:07] LABS: ALANINE AMINOTRANSFERASE 29 U/L (12-78); ALBUMIN 3.1 G/DL (3.4-5.0); ALBUMIN/GLOBULIN RATIO 0.9 (1.1-1.5); ALKALINE PHOSPHATASE 35 IU/L (46-116); ANION GAP 9 (8-16); ASPARTATE AMINO TRANSFERASE 43 U/L (10-37); BILIRUBIN,TOTAL 1.1 MG/DL (0.1-1.0); BLOOD UREA NITROGEN 31 MG/DL (7-18); BUN/CREATININE RATIO 23.3 (5.4-32.0); CALCIUM 8.6 MG/DL (8.5-10.1); CHLORIDE 99 MMOL/L (99-107); CREATININE 1.33 MG/DL (0.60-1.10); GLUCOSE 153 MG/DL (70-104); POTASSIUM 3.1 MMOL/L (3.5-5.1); SODIUM 140 MMOL/L (135-145); TOTAL PROTEIN 6.6 G/DL (6.4-8.2); eGFR 56 ML/MIN
[2022-05-09] MEDS ORDERED: potassium Cl 20 mEq SR tablet PO ONE (09:20)
[2022-05-09] MEDS ORDERED: mag hydrox/Alum hydrox/simeth 30ml oral suspension PO PRN (13:15)
[2022-05-09] MEDS ORDERED: magnesium 4gm in 100ml NS 100 ML IV PRN (13:15)
[2022-05-09] MEDS ORDERED: potassium Cl 40MEQ/1/2NS 520ml 520 ML IV PRN (13:15)
[2022-05-09] MEDS ORDERED: magnesium hydroxide 30ml (MOM) UD suspension PO PRN (13:15)
[2022-05-09] MEDS ORDERED: ondansetron/PF 4mg/2ml inj IV PRN (13:15)
[2022-05-09] MEDS ORDERED: acetaminophen 325mg tablet PO PRN (13:15)
[2022-05-09] MEDS ORDERED: magnesium 2GM in 50ml NS 50 ML IV PRN (13:15)
[2022-05-09] MEDS ORDERED: potassium Cl 20 mEq SR tablet PO PRN (13:15)
[2022-05-09] MEDS ORDERED: BUPR1FIL20 SL (14:41)
[2022-05-09] MEDS ORDERED: POTA-207 PO (14:42)
[2022-05-09] MEDS ORDERED: ESZO3TAB44 PO (14:42)
[2022-05-09] MEDS ORDERED: FURO20TA4 PO (14:43)
[2022-05-09] MEDS ORDERED: SILD25TA10 PO (14:44)
[2022-05-09] MEDS ORDERED: DOCU-148 PO (14:45)
[2022-05-09] MEDS ORDERED: OMEG-5 PO (14:45)
[2022-05-09 17:55] VITALS: BP 100/73
[2022-05-09 18:00] VITALS: BP 100/73
--- NOTE | 2022-05-09 18:33 | NUR ---
Problems reprioritized. Patient report given, questions answered & plan of care reviewed with YAMILKA MARQUES.
[2022-05-09] MEDS: furosemide 40mg/4ml inj IV SCH (19:56)
[2022-05-09] MEDS: atorvastatin 20mg tablet PO SCH (19:57)
[2022-05-09] MEDS: docusate sod 100mg capsule PO SCH (19:58)
[2022-05-09] MEDS: apixaban 5mg tablet PO SCH (19:58)
[2022-05-09] MEDS: carVEDilol 12.5mg tablet PO SCH (19:58)
[2022-05-09] MEDS: magnesium Cl slow-release 64mg tablet PO SCH (19:59)
[2022-05-09] MEDS: K and/or MAG REPLACEMENT MC SCH (19:59)
[2022-05-09] MEDS ORDERED: apixaban 5mg tablet PO SCH (20:00)
[2022-05-09] MEDS: fenofibrate 145mg tablet PO SCH (20:08)
[2022-05-09 22:00] VITALS: BP 122/73
[2022-05-09] MEDS: zolpidem 5mg tablet PO SCH (22:32)
[2022-05-10 02:00] VITALS: BP 112/72
[2022-05-10 06:00] VITALS: BP 107/58
--- NOTE | 2022-05-10 06:54 | NUR ---
Patient in room PCU 3012. I have received report from YAMILKA MARQUES, and had the opportunity to ask questions and assume patient care.
[2022-05-10 07:06] LABS: BASOPHILS # (AUTO) 0.1 X10'3 (0-0.2); BASOPHILS % (AUTO) 1.4 % (0-1); EOSINOPHILS # (AUTO) 0.4 X10'3 (0-0.9); EOSINOPHILS % (AUTO) 9.4 % (0-6); HEMATOCRIT 25.9 % (42.0-52.0); HEMOGLOBIN 8.5 g/dl (14.0-17.9); LYMPHOCYTES % (AUTO) 23.5 % (21-51); MEAN CORPUSCULAR HEMOGLOBIN 26.2 PG (27.0-31.0); MEAN CORPUSCULAR HGB CONC 32.9 g/dL (33.0-36.5); MEAN CORPUSCULAR VOLUME 79.5 FL (78-98); MEAN PLATELET VOLUME 9.1 FL (7.4-10.4); MONOCYTES # (AUTO) 0.7 X10'3 (0-0.9); MONOCYTES % (AUTO) 14.8 % (2-12); NEUTROPHILS # (AUTO) 2.3 X10'3 (1.8-7.7); NEUTROPHILS % (AUTO) 50.9 % (42-75); PLATELET COUNT 167 X10'3 (140-440); RED BLOOD COUNT 3.25 X10'6 (4.70-6.10); RED CELL DISTRIBUTION WIDTH 16.5 % (11.5-14.5); WHITE BLOOD COUNT 4.5 X10'3 (4.5-11.0)
[2022-05-10 07:14] LABS: ALANINE AMINOTRANSFERASE 26 U/L (12-78); ALBUMIN 2.8 G/DL (3.4-5.0); ALBUMIN/GLOBULIN RATIO 0.8 (1.1-1.5); ALKALINE PHOSPHATASE 33 IU/L (46-116); ANION GAP 10 (8-16); ASPARTATE AMINO TRANSFERASE 46 U/L (10-37); BILIRUBIN,TOTAL 1.1 MG/DL (0.1-1.0); BLOOD UREA NITROGEN 27 MG/DL (7-18); BUN/CREATININE RATIO 22.1 (5.4-32.0); CALCIUM 8.5 MG/DL (8.5-10.1); CHLORIDE 101 MMOL/L (99-107); CREATININE 1.22 MG/DL (0.60-1.10); GLUCOSE 109 MG/DL (70-104); MAGNESIUM 1.5 MG/DL (1.5-2.4); POTASSIUM 3.1 MMOL/L (3.5-5.1); SODIUM 144 MMOL/L (135-145); TOTAL CARBON DIOXIDE 33.1 MMOL/L (24-32); TOTAL PROTEIN 6.3 G/DL (6.4-8.2); eGFR 62 ML/MIN
[2022-05-10 07:40] LABS: % IRON SATURATION 5 % (11-46); IRON 29 UG/DL (53-167); TOTAL IRON BINDING CAPACITY 533 UG/DL (259-388)
[2022-05-10] MEDS ORDERED: lisinopril 10 MG tablet PO SCH (08:00)
[2022-05-10] MEDS: docusate sod 100mg capsule PO SCH ×2 (08:00→08:49)
[2022-05-10] MEDS ORDERED: iron sucrose complex injection 500 MG in normal saline 250ml IV soln 250 ML IV ONE (08:30)
[2022-05-10] MEDS: potassium Cl 20 mEq SR tablet PO PRN ×3 (08:32→21:44)
[2022-05-10] MEDS: OMEGA-3/DHA/EPA/FISH OIL 1 EACH CAPSULE.DR PO SCH (08:32)
[2022-05-10] MEDS: magnesium Cl slow-release 64mg tablet PO SCH ×2 (08:33→19:26)
[2022-05-10] MEDS: apixaban 5mg tablet PO SCH ×2 (08:38→19:26)
[2022-05-10] MEDS: furosemide 40mg/4ml inj IV SCH ×2 (08:38→19:27)
[2022-05-10] MEDS: K and/or MAG REPLACEMENT MC SCH ×2 (08:54→21:45)
[2022-05-10] MEDS: buprenorphine/naloxone 8MG-2MG SUBlingual film SL SCH (09:54)
[2022-05-10 10:46] VITALS: BP 115/73
[2022-05-10] MEDS: carVEDilol 12.5mg tablet PO SCH ×2 (10:49→19:26)
[2022-05-10 15:00] VITALS: BP 115/73
[2022-05-10 16:53] VITALS: BP 98/61
[2022-05-10 18:00] VITALS: BP 111/71
--- NOTE | 2022-05-10 18:48 | NUR ---
Problems reprioritized. Patient report given, questions answered & plan of care reviewed with YAMILKA MARQUES.
[2022-05-10] MEDS: atorvastatin 20mg tablet PO SCH (19:26)
[2022-05-10] MEDS: fenofibrate 145mg tablet PO SCH (19:27)
[2022-05-10] MEDS: zolpidem 5mg tablet PO SCH (21:44)
[2022-05-11 06:00] VITALS: BP 107/63
[2022-05-11 06:30] LABS: BASOPHILS # (AUTO) 0.1 X10'3 (0-0.2); BASOPHILS % (AUTO) 1.1 % (0-1); EOSINOPHILS # (AUTO) 0.5 X10'3 (0-0.9); EOSINOPHILS % (AUTO) 8.4 % (0-6); HEMATOCRIT 27.6 % (42.0-52.0); LYMPHOCYTES % (AUTO) 16.3 % (21-51); MEAN CORPUSCULAR HEMOGLOBIN 26.1 PG (27.0-31.0); MEAN CORPUSCULAR HGB CONC 32.7 g/dL (33.0-36.5); MEAN CORPUSCULAR VOLUME 79.8 FL (78-98); MEAN PLATELET VOLUME 8.8 FL (7.4-10.4); MONOCYTES # (AUTO) 0.8 X10'3 (0-0.9); MONOCYTES % (AUTO) 14.2 % (2-12); NEUTROPHILS # (AUTO) 3.6 X10'3 (1.8-7.7); PLATELET COUNT 187 X10'3 (140-440); RED BLOOD COUNT 3.47 X10'6 (4.70-6.10); RED CELL DISTRIBUTION WIDTH 17.2 % (11.5-14.5)
[2022-05-11 06:42] LABS: ALANINE AMINOTRANSFERASE 24 U/L (12-78); ALBUMIN/GLOBULIN RATIO 0.9 (1.1-1.5); ALKALINE PHOSPHATASE 33 IU/L (46-116); ANION GAP 4 (8-16); ASPARTATE AMINO TRANSFERASE 46 U/L (10-37); BILIRUBIN,TOTAL 0.9 MG/DL (0.1-1.0); BLOOD UREA NITROGEN 25 MG/DL (7-18); BUN/CREATININE RATIO 21.4 (5.4-32.0); CALCIUM 8.7 MG/DL (8.5-10.1); CHLORIDE 103 MMOL/L (99-107); CREATININE 1.17 MG/DL (0.60-1.10); GLUCOSE 118 MG/DL (70-104); MAGNESIUM 1.8 MG/DL (1.5-2.4); POTASSIUM 3.2 MMOL/L (3.5-5.1); SODIUM 141 MMOL/L (135-145); TOTAL CARBON DIOXIDE 33.8 MMOL/L (24-32); TOTAL PROTEIN 6.5 G/DL (6.4-8.2); eGFR 65 ML/MIN
--- NOTE | 2022-05-11 06:46 | NUR ---
Patient in room PCU 3012. I have received report from YAMILKA MARQUES, and had the opportunity to ask questions and assume patient care.
--- NOTE | 2022-05-11 07:01 | NUR ---
ATTEMPTED TO APPLY DEB SINHA TO PT , PT REFUSED. LOOKING FOR LARGER SIZE.
[2022-05-11] MEDS: K and/or MAG REPLACEMENT MC SCH ×2 (07:03→20:00)
[2022-05-11] MEDS: apixaban 5mg tablet PO SCH ×2 (08:37→20:07)
[2022-05-11] MEDS: buprenorphine/naloxone 8MG-2MG SUBlingual film SL SCH (08:37)
[2022-05-11] MEDS: magnesium Cl slow-release 64mg tablet PO SCH ×2 (08:37→20:07)
[2022-05-11] MEDS: potassium Cl 20 mEq SR tablet PO PRN ×3 (08:37→17:37)
[2022-05-11] MEDS: docusate sod 100mg capsule PO SCH (08:38)
[2022-05-11] MEDS: OMEGA-3/DHA/EPA/FISH OIL 1 EACH CAPSULE.DR PO SCH (08:38)
[2022-05-11] MEDS: furosemide 40mg/4ml inj IV SCH ×2 (08:40→20:07)
--- NOTE | 2022-05-11 09:08 | NUR ---
1/2 SUBOXONE STRIP WASTED, WITNESSED BY [employer]ENITY PRO RN.
[2022-05-11 11:00] VITALS: BP 99/58
--- NOTE | 2022-05-11 12:41 | NUR ---
DEB SINHA PLACED ON PT.
[2022-05-11] MEDS: carVEDilol 12.5mg tablet PO SCH ×2 (12:43→21:52)
[2022-05-11 12:56] VITALS: BP 108/67
[2022-05-11 18:00] VITALS: BP 99/68
--- NOTE | 2022-05-11 18:24 | NUR ---
Problems reprioritized. Patient report given, questions answered & plan of care reviewed with YAMILKA NEWMAN.
[2022-05-11 20:00] VITALS: BP 104/62
[2022-05-11] MEDS: fenofibrate 145mg tablet PO SCH (21:51)
[2022-05-11] MEDS: atorvastatin 20mg tablet PO SCH (21:52)
[2022-05-11] MEDS: zolpidem 5mg tablet PO SCH (21:52)
[2022-05-11] MEDS: sacubitril/valsartan 24mg-26mg tablet PO SCH (21:52)
[2022-05-11 21:53] VITALS: BP 113/67
[2022-05-12 06:22] LABS: BASOPHILS # (AUTO) 0.1 X10'3 (0-0.2); BASOPHILS % (AUTO) 1.4 % (0-1); EOSINOPHILS # (AUTO) 0.5 X10'3 (0-0.9); EOSINOPHILS % (AUTO) 9.3 % (0-6); HEMATOCRIT 28.9 % (42.0-52.0); HEMOGLOBIN 9.4 g/dl (14.0-17.9); LYMPHOCYTES # (AUTO) 1.2 X10'3 (1.1-4.8); LYMPHOCYTES % (AUTO) 20.7 % (21-51); MEAN CORPUSCULAR HGB CONC 32.6 g/dL (33.0-36.5); MEAN CORPUSCULAR VOLUME 79.7 FL (78-98); MEAN PLATELET VOLUME 8.5 FL (7.4-10.4); MONOCYTES # (AUTO) 1.1 X10'3 (0-0.9); MONOCYTES % (AUTO) 19.7 % (2-12); NEUTROPHILS # (AUTO) 2.8 X10'3 (1.8-7.7); NEUTROPHILS % (AUTO) 48.9 % (42-75); PLATELET COUNT 216 X10'3 (140-440); RED BLOOD COUNT 3.63 X10'6 (4.70-6.10); RED CELL DISTRIBUTION WIDTH 17.2 % (11.5-14.5); WHITE BLOOD COUNT 5.7 X10'3 (4.5-11.0)
[2022-05-12 06:35] LABS: ALANINE AMINOTRANSFERASE 25 U/L (12-78); ALBUMIN/GLOBULIN RATIO 0.9 (1.1-1.5); ALKALINE PHOSPHATASE 30 IU/L (46-116); ANION GAP 4 (8-16); ASPARTATE AMINO TRANSFERASE 38 U/L (10-37); BILIRUBIN,TOTAL 1.1 MG/DL (0.1-1.0); BLOOD UREA NITROGEN 23 MG/DL (7-18); BUN/CREATININE RATIO 19.8 (5.4-32.0); CALCIUM 8.9 MG/DL (8.5-10.1); CHLORIDE 101 MMOL/L (99-107); CREATININE 1.16 MG/DL (0.60-1.10); GLUCOSE 116 MG/DL (70-104); MAGNESIUM 1.8 MG/DL (1.5-2.4); POTASSIUM 3.5 MMOL/L (3.5-5.1); SODIUM 139 MMOL/L (135-145); TOTAL CARBON DIOXIDE 33.7 MMOL/L (24-32); TOTAL PROTEIN 6.5 G/DL (6.4-8.2); eGFR 66 ML/MIN
[2022-05-12 07:00] VITALS: BP 93/58
[2022-05-12] MEDS: K and/or MAG REPLACEMENT MC SCH (08:00)
[2022-05-12] MEDS: furosemide 40mg/4ml inj IV SCH (08:00)
[2022-05-12] MEDS ORDERED: furosemide 20MG tablet PO ONE (09:50)
[2022-05-12] MEDS: magnesium Cl slow-release 64mg tablet PO SCH (09:58)
[2022-05-12] MEDS: OMEGA-3/DHA/EPA/FISH OIL 1 EACH CAPSULE.DR PO SCH (09:58)
[2022-05-12] MEDS: sacubitril/valsartan 24mg-26mg tablet PO SCH (09:58)
[2022-05-12] MEDS: docusate sod 100mg capsule PO SCH (09:58)
[2022-05-12] MEDS: carVEDilol 12.5mg tablet PO SCH (09:58)
[2022-05-12] MEDS: atorvastatin 20mg tablet PO SCH (09:59)
[2022-05-12] MEDS: fenofibrate 145mg tablet PO SCH (09:59)
[2022-05-12] MEDS: apixaban 5mg tablet PO SCH (09:59)
[2022-05-12] MEDS: buprenorphine/naloxone 8MG-2MG SUBlingual film SL SCH (10:00)
[2022-05-12] MEDS ORDERED: FURO40TA4 PO (10:02)
[2022-05-12] MEDS ORDERED: SACU1TAB PO (10:02)
== END 2022-05-12 12:49 | disposition home or self-care (01) | DRG 194 ==
LOC: ER 07:32 → ED HOLD 13:26 → PCU 3S 17:13
PROVIDERS: ADMIT Family Medicine; ATTEND Family Medicine
DX: I11.0 Hypertensive heart disease with heart failure (principal); N17.0 Acute kidney failure with tubular necrosis; I27.20 Pulmonary hypertension, unspecified; I50.23 Acute on chronic systolic (congestive) heart failure; D50.9 Iron deficiency anemia, unspecified; E11.51 Type 2 diabetes mellitus with diabetic peripheral angiopathy without gangrene; I48.20 Chronic atrial fibrillation, unspecified; E78.5 Hyperlipidemia, unspecified; E87.6 Hypokalemia; I07.1 Rheumatic tricuspid insufficiency; I25.10 Atherosclerotic heart disease of native coronary artery without angina pectoris; I25.2 Old myocardial infarction; I48.0 Paroxysmal atrial fibrillation; J44.9 Chronic obstructive pulmonary disease, unspecified; Z79.01 Long term (current) use of anticoagulants; N50.89 Other specified disorders of the male genital organs; Z82.5 Family history of asthma and other chronic lower respiratory diseases; Z82.49 Family history of ischemic heart disease and other diseases of the circulatory system; Z83.3 Family history of diabetes mellitus; Z87.442 Personal history of urinary calculi; Z87.891 Personal history of nicotine dependence; Z88.0 Allergy status to penicillin; Z95.1 Presence of aortocoronary bypass graft; Z95.5 Presence of coronary angioplasty implant and graft
CPT/HCPCS: 36415; 71045; 80053; 83540; 83550; 83735; 83880; 84484; 85025; 85610; 85730; 87081; 93306; 97110; 97116; 97161; 99285; G0378; J1756; J1940; J7040; J7050

== ENCOUNTER 2022-10-10 12:00 | Day surgery (SDC) | payer MEDICAID ==
[2022-10-06 15:01] LABS: EOSINOPHILS # (AUTO) 0.4 X10'3 (0-0.9); HEMOGLOBIN 11.3 g/dl (14.0-17.9); LYMPHOCYTES # (AUTO) 1.3 X10'3 (1.1-4.8); RED CELL DISTRIBUTION WIDTH 13.9 % (11.5-14.5)
[2022-10-06 15:03] LABS: BASOPHILS # (AUTO) 0.1 X10'3 (0-0.2); BASOPHILS % (AUTO) 1.2 % (0-1); EOSINOPHILS % (AUTO) 6.1 % (0-6); HEMATOCRIT 33.4 % (42.0-52.0); LYMPHOCYTES % (AUTO) 19.1 % (21-51); MEAN CORPUSCULAR HEMOGLOBIN 32.9 PG (27.0-31.0); MEAN CORPUSCULAR HGB CONC 33.8 g/dL (33.0-36.5); MEAN CORPUSCULAR VOLUME 97.4 FL (78-98); MEAN PLATELET VOLUME 8.2 FL (7.4-10.4); MONOCYTES # (AUTO) 0.7 X10'3 (0-0.9); MONOCYTES % (AUTO) 9.9 % (2-12); NEUTROPHILS # (AUTO) 4.3 X10'3 (1.8-7.7); NEUTROPHILS % (AUTO) 63.7 % (42-75); PLATELET COUNT 222 X10'3 (140-440); RED BLOOD COUNT 3.43 X10'6 (4.70-6.10); WHITE BLOOD COUNT 6.8 X10'3 (4.5-11.0)
[2022-10-06 15:11] LABS: ALBUMIN 3.8 G/DL (3.4-5.0); CALCIUM 9.5 MG/DL (8.5-10.1); TOTAL CARBON DIOXIDE 27.6 MMOL/L (24-32)
[2022-10-06 15:14] LABS: APTT 32 SECONDS (22-32)
[2022-10-06 15:22] LABS: ANION GAP 9 (8-16); BLOOD UREA NITROGEN 41 MG/DL (7-18); BUN/CREATININE RATIO 19.6 (10.0-20.0); CHLORIDE 103 MMOL/L (99-107); CREATININE 2.09 MG/DL (0.60-1.10); GLUCOSE 93 MG/DL (70-104); POTASSIUM 4.5 MMOL/L (3.5-5.1); SODIUM 140 MMOL/L (135-145); eGFR 33 ML/MIN
[~2022-10-10] VITALS: Ht 172.7 cm; Wt 121.8 kg
[2022-10-10] VITALS (14 sets, daily range): BP systolic 87–123; BP diastolic 45–79
[~2022-10-10 12:00] MED LIST changes: +BUPR1FIL20 SL; +DOCU-148 PO; +ESZO3TAB44 PO; -FURO-150 PO; +FURO40TA4 PO; -LISI10TA27 PO; +OMEG-5 PO; +POTA-207 PO; -POTA10CA45 PO; +SACU1TAB PO; +SILD25TA10 PO; -ZOLP10TA5 PO
[2022-10-10] MEDS ORDERED: MIDAZolam 1mg/ml 10ml vial IV ONE (12:25)
[2022-10-10] MEDS ORDERED: fentaNYL/PF 50MCG/1 ML 2ML syringe IV ONE (12:25)
[2022-10-10] MEDS ORDERED: normal saline 1000ml 1,000 ML IV SCH (12:25)
== END 2022-10-10 15:20 | disposition home or self-care (01) ==
LOC: SSTAY O 12:00
PROVIDERS: ATTEND Student in an Organized Health Care Education/Training Program
DX: I48.0 Paroxysmal atrial fibrillation (principal); I25.10 Atherosclerotic heart disease of native coronary artery without angina pectoris; I25.2 Old myocardial infarction; I50.9 Heart failure, unspecified; I44.7 Left bundle-branch block, unspecified; I34.0 Nonrheumatic mitral (valve) insufficiency; E78.5 Hyperlipidemia, unspecified; G47.33 Obstructive sleep apnea (adult) (pediatric); D64.9 Anemia, unspecified; Z79.01 Long term (current) use of anticoagulants; Z79.899 Other long term (current) drug therapy; Z95.5 Presence of coronary angioplasty implant and graft; Z87.442 Personal history of urinary calculi
CPT/HCPCS: 36415; 80048; 85025; 85610; 85730; 92960; J2250; J3010; J7030; A4620

== ENCOUNTER 2023-05-19 14:44 | Emergency (ER) | payer MEDICAID ==
[~2023-05-19] VITALS: Ht 172.7 cm; Wt 123.6 kg
[2023-05-19 15:15] VITALS: TEMP 97.8
[2023-05-19 15:40] LABS: BASOPHILS # (AUTO) 0.1 X10'3 (0-0.2); BASOPHILS % (AUTO) 1.1 % (0-1); EOSINOPHILS % (AUTO) 0 % (0-6); HEMATOCRIT 33.3 % (42.0-52.0); LYMPHOCYTES # (AUTO) 0.8 X10'3 (1.1-4.8); LYMPHOCYTES % (AUTO) 6.1 % (21-51); MEAN CORPUSCULAR HEMOGLOBIN 31.9 PG (27.0-31.0); MEAN CORPUSCULAR HGB CONC 33.2 g/dL (33.0-36.5); MEAN CORPUSCULAR VOLUME 96.1 FL (78-98); MEAN PLATELET VOLUME 9.1 FL (7.4-10.4); MONOCYTES # (AUTO) 0.9 X10'3 (0-0.9); MONOCYTES % (AUTO) 6.9 % (2-12); NEUTROPHILS # (AUTO) 11.3 X10'3 (1.8-7.7); NEUTROPHILS % (AUTO) 85.9 % (42-75); PLATELET COUNT 169 X10'3 (140-440); RED BLOOD COUNT 3.46 X10'6 (4.70-6.10); RED CELL DISTRIBUTION WIDTH 16.4 % (11.5-14.5); WHITE BLOOD COUNT 13.1 X10'3 (4.5-11.0)
[2023-05-19 15:53] LABS: ANION GAP 9 (8-16); BILIRUBIN,TOTAL 1.2 MG/DL (0.1-1.0); BLOOD UREA NITROGEN 36 MG/DL (7-18); BUN/CREATININE RATIO 22.8 (10.0-20.0); CALCIUM 9.1 MG/DL (8.5-10.1); CHLORIDE 103 MMOL/L (99-107); CREATININE 1.58 MG/DL (0.60-1.10); GLUCOSE 135 MG/DL (70-104); POTASSIUM 3.5 MMOL/L (3.5-5.1); SODIUM 143 MMOL/L (135-145); TOTAL CARBON DIOXIDE 31.5 MMOL/L (24-32); TOTAL PROTEIN 7.4 G/DL (6.4-8.2); eCRCL 51 ML/MIN; eGFR 46 ML/MIN
[2023-05-19 15:54] LABS: ALANINE AMINOTRANSFERASE 28 U/L (12-78); ALBUMIN 3.5 G/DL (3.4-5.0); ALBUMIN/GLOBULIN RATIO 0.9 (1.1-1.5); ALKALINE PHOSPHATASE 50 IU/L (46-116); ASPARTATE AMINO TRANSFERASE 84 U/L (10-37)
[2023-05-19 16:00] LABS: PRO BRAIN NATRIURETIC PEPTIDE 2231 PG/ML (0-125)
[2023-05-19 17:44] VITALS: BP 124/63; PULSE 77; RESP 16; O2SAT 96
== END 2023-05-19 18:05 | disposition home or self-care (01) ==
LOC: ER 14:45
DX: Z48.01 Encounter for change or removal of surgical wound dressing (principal); I48.91 Unspecified atrial fibrillation; I11.0 Hypertensive heart disease with heart failure; I25.10 Atherosclerotic heart disease of native coronary artery without angina pectoris; I25.2 Old myocardial infarction; Z87.442 Personal history of urinary calculi; Z95.5 Presence of coronary angioplasty implant and graft; Z95.0 Presence of cardiac pacemaker; Z88.0 Allergy status to penicillin; Z79.899 Other long term (current) drug therapy
CPT/HCPCS: 36415; 80053; 83880; 84484; 85025; 93005; 99284; A6258

== ENCOUNTER 2023-07-17 11:16 | Inpatient (IN) | payer MEDICAID ==
[~2023-07-17] VITALS: Ht 172.7 cm; Wt 111.5 kg
[2023-07-17] MEDS ORDERED: dicyclomine 10 MG capsule PO ONE (12:00)
[2023-07-17] MEDS ORDERED: mag hydrox/Alum hydrox/simeth 30ml oral suspension PO ONE (12:00)
[2023-07-17] MEDS ORDERED: ondansetron 4mg rapidly disintigrating tab PO ONE (12:00)
[2023-07-17] MEDS ORDERED: HYDROcodone/acetaminophen 5mg/325mg tablet PO ONE (12:00)
[2023-07-17] MEDS ORDERED: LIDOcaine 2% Viscous 15ml cup MM PRN (12:00)
[2023-07-17 12:35] LABS: BASOPHILS # (AUTO) 0.1 X10'3 (0-0.2); BASOPHILS % (AUTO) 1.4 % (0-1); EOSINOPHILS # (AUTO) 0.9 X10'3 (0-0.9); EOSINOPHILS % (AUTO) 14.7 % (0-6); HEMATOCRIT 34.1 % (42.0-52.0); HEMOGLOBIN 11.8 g/dl (14.0-17.9); LYMPHOCYTES % (AUTO) 15.5 % (21-51); MEAN CORPUSCULAR HEMOGLOBIN 32.9 PG (27.0-31.0); MEAN CORPUSCULAR HGB CONC 34.5 g/dL (33.0-36.5); MEAN CORPUSCULAR VOLUME 95.3 FL (78-98); MEAN PLATELET VOLUME 8.1 FL (7.4-10.4); MONOCYTES # (AUTO) 0.6 X10'3 (0-0.9); MONOCYTES % (AUTO) 9.4 % (2-12); NEUTROPHILS # (AUTO) 3.7 X10'3 (1.8-7.7); PLATELET COUNT 232 X10'3 (140-440); RED BLOOD COUNT 3.58 X10'6 (4.70-6.10); RED CELL DISTRIBUTION WIDTH 14.3 % (11.5-14.5); WHITE BLOOD COUNT 6.2 X10'3 (4.5-11.0)
[2023-07-17 12:50] LABS: APTT 32 SECONDS (22-32); INR 1.2 INR
[2023-07-17 13:02] LABS: ALANINE AMINOTRANSFERASE 40 U/L (12-78); ALBUMIN/GLOBULIN RATIO 0.9 (1.1-1.5); ALKALINE PHOSPHATASE 46 IU/L (46-116); AMYLASE 193 U/L (25-115); ANION GAP 8 (8-16); ASPARTATE AMINO TRANSFERASE 61 U/L (10-37); BILIRUBIN,TOTAL 0.5 MG/DL (0.1-1.0); BLOOD UREA NITROGEN 81 MG/DL (7-18); BUN/CREATININE RATIO 20.8 (10.0-20.0); CALCIUM 9.6 MG/DL (8.5-10.1); CHLORIDE 100 MMOL/L (99-107); GLUCOSE 113 MG/DL (70-104); SODIUM 135 MMOL/L (135-145); TOTAL PROTEIN 8.3 G/DL (6.4-8.2); eCRCL 21 ML/MIN; eGFR 16 ML/MIN
[2023-07-17 13:05] LABS: POTASSIUM 6.3 MMOL/L (3.5-5.1)
[2023-07-17 13:26] LABS: BILIRUBIN,URINE NEGATIVE (Neg); CLARITY,URINE SLIGHTLY CLOUDY (Clear); COLOR,URINE YELLOW (Yellow); GLUCOSE, URINE NEGATIVE (Neg); KETONES,URINE TRACE mg/dl (Neg); LEUKOCYTE ESTERASE ,URINE NEGATIVE (Neg); NITRITES, URINE NEGATIVE (Neg); OCCULT BLOOD,URINE NEGATIVE (Neg); PH,URINE 5.5 (4.8-8.0); PROTEIN,URINE NEGATIVE (Neg); UROBILINOGEN,URINE 0.2 E.U/dL (0.2-1.0)
[2023-07-17 13:32] LABS: UA COLLECTION TYPE VOIDED
[2023-07-17 13:33] LABS: SQUAMOUS EPITHELIAL CELL,UR MANY /LPF (FEW)
[2023-07-17 13:34] LABS: HYALINE CASTS >30 /LPF (NEGATIVE)
[2023-07-17 13:35] LABS: AMORPHOUS URATES 2+; BACTERIA,URINE 1+ /HPF (Neg); CAL OXALATE CRYSTALS 3+ /HPF (NEGATIVE)
[2023-07-17 13:36] LABS: RBC,URINE 0-2 /HPF (0-2); WBC,URINE 0-4 /HPF (0-4)
[2023-07-17 13:46] LABS: LIPASE > 375 U/L (16-77)
[2023-07-17] MEDS: morphine 4 MG/ML inj SYRINge IV ONE ×2 (14:10→16:05)
[2023-07-17] MEDS: normal saline 500ml IV soln 500 ML IV ONE ×4 (15:20→19:15)
[2023-07-17] MEDS ORDERED: potassium Cl 20 mEq SR tablet PO PRN ×2 (15:40)
[2023-07-17] MEDS ORDERED: HYDROcodone/acetaminophen 10/325mg tab PO PRN (15:40)
[2023-07-17] MEDS ORDERED: magnesium 2GM in 50ml NS 50 ML IV PRN (15:40)
[2023-07-17] MEDS ORDERED: magnesium Cl slow-release 64mg tablet PO PRN (15:40)
[2023-07-17] MEDS ORDERED: acetaminophen 325mg tablet PO PRN ×2 (15:40)
[2023-07-17] MEDS ORDERED: HYDROcodone/acetaminophen 5mg/325mg tablet PO PRN (15:40)
[2023-07-17] MEDS ORDERED: magnesium 4gm in 100ml NS 100 ML IV PRN (15:40)
[2023-07-17] MEDS ORDERED: potassium Cl 40MEQ/1/2NS 520ml 520 ML IV PRN (15:40)
[2023-07-17] MEDS: ondansetron/PF 4mg/2ml inj IM ONE (15:52)
[2023-07-17] MEDS: CALCIUM GLUC 1gm/50ml NACL,iso 50 ML IV ONE (15:52)
[2023-07-17] MEDS: normal saline 1000ML IV soln IVB ONE (15:54)
[2023-07-17] MEDS: sodium bicarbonate (8.4%) 1 mEq/ml syringe IV ONE (16:14)
[2023-07-17] MEDS: dextrose 50%-water 50ml dispensing syringe IV ONE (16:14)
[2023-07-17] MEDS: insulin regular, human U-100 3ml vial - multi-dose IV ONE (16:16)
[2023-07-17] MEDS: sodium polystyrene sulfonate 15gm/60ml oral suspension PO ONE (16:28)
[2023-07-17 19:58] VITALS: PULSE 76; RESP 16; O2SAT 96
[2023-07-17] MEDS: heparin, porcine 5000 units/ml vial SQ SCH (20:00)
[2023-07-17] MEDS: ondansetron/PF 4mg/2ml inj IV PRN (22:03)
[2023-07-17 22:20] VITALS: PULSE 76; RESP 16; O2SAT 96
[2023-07-17] MEDS: normal saline 1000ml 1,000 ML IV SCH (22:30)
[2023-07-17] MEDS: HYDROmorphone 1 mg/ml syringe IV PRN (23:16)
[2023-07-18 02:00] VITALS: BP 98/46; PULSE 80; RESP 12; TEMP 98.2; O2SAT 93
[2023-07-18 07:41] LABS: BASOPHILS # (AUTO) 0.1 X10'3 (0-0.2); BASOPHILS % (AUTO) 1.3 % (0-1); EOSINOPHILS # (AUTO) 0.7 X10'3 (0-0.9); EOSINOPHILS % (AUTO) 9.3 % (0-6); HEMATOCRIT 31.2 % (42.0-52.0); HEMOGLOBIN 10.6 g/dl (14.0-17.9); LYMPHOCYTES # (AUTO) 0.8 X10'3 (1.1-4.8); LYMPHOCYTES % (AUTO) 10.4 % (21-51); MEAN CORPUSCULAR HEMOGLOBIN 32.5 PG (27.0-31.0); MEAN CORPUSCULAR VOLUME 95.7 FL (78-98); MEAN PLATELET VOLUME 7.7 FL (7.4-10.4); MONOCYTES # (AUTO) 0.7 X10'3 (0-0.9); NEUTROPHILS # (AUTO) 5.1 X10'3 (1.8-7.7); PLATELET COUNT 177 X10'3 (140-440); RED BLOOD COUNT 3.26 X10'6 (4.70-6.10); WHITE BLOOD COUNT 7.3 X10'3 (4.5-11.0)
[2023-07-18 08:06] LABS: ALANINE AMINOTRANSFERASE 31 U/L (12-78); ALBUMIN 3.1 G/DL (3.4-5.0); ALBUMIN/GLOBULIN RATIO 0.9 (1.1-1.5); ALKALINE PHOSPHATASE 30 IU/L (46-116); ANION GAP 8 (8-16); ASPARTATE AMINO TRANSFERASE 52 U/L (10-37); BILIRUBIN,TOTAL 0.6 MG/DL (0.1-1.0); BLOOD UREA NITROGEN 52 MG/DL (7-18); BUN/CREATININE RATIO 25.9 (10.0-20.0); CALCIUM 8.4 MG/DL (8.5-10.1); CHLORIDE 105 MMOL/L (99-107); CREATININE 2.01 MG/DL (0.60-1.10); GLUCOSE 87 MG/DL (70-104); POTASSIUM 4.3 MMOL/L (3.5-5.1); SODIUM 139 MMOL/L (135-145); TOTAL CARBON DIOXIDE 25.9 MMOL/L (24-32); TOTAL PROTEIN 6.7 G/DL (6.4-8.2); eCRCL 40 ML/MIN; eGFR 35 ML/MIN
[2023-07-18 09:47] VITALS: BP 113/57; PULSE 83; RESP 17; TEMP 98.4; O2SAT 94
[2023-07-18 16:30] VITALS: BP 118/68; PULSE 97; RESP 18; TEMP 98.6; O2SAT 97
[2023-07-18 18:00] VITALS: BP 105/58; PULSE 88; RESP 16; TEMP 97.9; O2SAT 97
[2023-07-18 20:32] VITALS: PULSE 72; RESP 16; O2SAT 95
[2023-07-18 22:00] VITALS: BP 98/48; PULSE 82; RESP 14; TEMP 98.1; O2SAT 97
[2023-07-19 03:00] VITALS: BP 103/58; PULSE 77; RESP 12; TEMP 98.1; O2SAT 94
[2023-07-19 05:26] VITALS: RESP 11
[2023-07-19 07:51] LABS: BASOPHILS # (AUTO) 0.1 X10'3 (0-0.2); BASOPHILS % (AUTO) 0.8 % (0-1); EOSINOPHILS # (AUTO) 0.5 X10'3 (0-0.9); EOSINOPHILS % (AUTO) 6.9 % (0-6); HEMATOCRIT 30.7 % (42.0-52.0); HEMOGLOBIN 10.4 g/dl (14.0-17.9); LYMPHOCYTES # (AUTO) 0.9 X10'3 (1.1-4.8); LYMPHOCYTES % (AUTO) 12.8 % (21-51); MEAN CORPUSCULAR HEMOGLOBIN 32.5 PG (27.0-31.0); MEAN CORPUSCULAR HGB CONC 33.9 g/dL (33.0-36.5); MEAN CORPUSCULAR VOLUME 95.8 FL (78-98); MEAN PLATELET VOLUME 7.7 FL (7.4-10.4); MONOCYTES # (AUTO) 0.8 X10'3 (0-0.9); MONOCYTES % (AUTO) 10.4 % (2-12); NEUTROPHILS % (AUTO) 69.1 % (42-75); PLATELET COUNT 156 X10'3 (140-440); RED BLOOD COUNT 3.21 X10'6 (4.70-6.10); RED CELL DISTRIBUTION WIDTH 13.9 % (11.5-14.5); WHITE BLOOD COUNT 7.3 X10'3 (4.5-11.0)
[2023-07-19 08:10] LABS: ALANINE AMINOTRANSFERASE 25 U/L (12-78); ALBUMIN 2.8 G/DL (3.4-5.0); ALBUMIN/GLOBULIN RATIO 0.7 (1.1-1.5); ALKALINE PHOSPHATASE 27 IU/L (46-116); ANION GAP 6 (8-16); ASPARTATE AMINO TRANSFERASE 46 U/L (10-37); BILIRUBIN,TOTAL 0.7 MG/DL (0.1-1.0); BLOOD UREA NITROGEN 28 MG/DL (7-18); BUN/CREATININE RATIO 23.1 (10.0-20.0); CALCIUM 8.1 MG/DL (8.5-10.1); CHLORIDE 105 MMOL/L (99-107); CREATININE 1.21 MG/DL (0.60-1.10); GLUCOSE 98 MG/DL (70-104); POTASSIUM 4.5 MMOL/L (3.5-5.1); SODIUM 136 MMOL/L (135-145); TOTAL CARBON DIOXIDE 24.9 MMOL/L (24-32); TOTAL PROTEIN 6.6 G/DL (6.4-8.2); eCRCL 67 ML/MIN; eGFR 62 ML/MIN
[2023-07-19] MEDS ORDERED: ATOR20TA66 PO (10:08)
[2023-07-19] MEDS ORDERED: ONDA4TAB12 PO (10:08)
[2023-07-19] MEDS ORDERED: CARV3.12 PO (10:08)
== END 2023-07-19 11:07 | disposition home or self-care (01) | DRG 282 ==
LOC: ER 11:17 → ED HOLD 15:46 → PCU 3S 18:50
PROVIDERS: ADMIT Internal Medicine; ATTEND Internal Medicine
DX: K85.90 Acute pancreatitis without necrosis or infection, unspecified (principal); N17.9 Acute kidney failure, unspecified; I11.0 Hypertensive heart disease with heart failure; I95.9 Hypotension, unspecified; I50.22 Chronic systolic (congestive) heart failure; E87.5 Hyperkalemia; G47.30 Sleep apnea, unspecified; I25.5 Ischemic cardiomyopathy; G89.4 Chronic pain syndrome; I48.91 Unspecified atrial fibrillation; I25.10 Atherosclerotic heart disease of native coronary artery without angina pectoris; T50.1X5A Adverse effect of loop [high-ceiling] diuretics, initial encounter; Y92.89 Other specified places as the place of occurrence of the external cause; Z79.01 Long term (current) use of anticoagulants; Z95.1 Presence of aortocoronary bypass graft; Z88.0 Allergy status to penicillin; Z79.899 Other long term (current) drug therapy; Z87.442 Personal history of urinary calculi; I25.2 Old myocardial infarction; Z95.0 Presence of cardiac pacemaker; Z82.5 Family history of asthma and other chronic lower respiratory diseases
CPT/HCPCS: 36415; 74176; 76700; 80053; 81001; 82150; 82948; 83605; 83690; 84132; 84145; 84484; 85025; 85610; 85651; 85730; 87040; 87081; 87502; 87503; 93005; 93308; 94760; 99285; G0378; J0610; J1170; J1644; J1815; J2270; J2405; J3490; J7030; J7040; J8597

== ENCOUNTER → 2023-11-07 | Outpatient (CLI) | payer BC ==
[~2023-11-07] MED LIST changes: -ATOR-2 PO; +ATOR20TA66 PO; -CARV-50 PO; +CARV3.12 PO; -DOCU-148 PO; -FENO160T PO; -FURO40TA4 PO; -OMEG-5 PO; +ONDA-243 PO; -POTA-207 PO; -SACU1TAB PO; -SILD25TA10 PO; +iohexol 300mg/ml 100ml inj. ONE
== END | disposition home or self-care (01) ==
LOC: RAD 14:59
PROVIDERS: ATTEND Surgery
DX: N43.3 Hydrocele, unspecified (principal); M43.16 Spondylolisthesis, lumbar region; M47.817 Spondylosis without myelopathy or radiculopathy, lumbosacral region; Z98.890 Other specified postprocedural states
CPT/HCPCS: 74177; Q9967

== ENCOUNTER 2023-12-14 14:16 | Outpatient (CLI) | payer BC ==
[~2023-12-14 14:16] MED LIST changes: -iohexol 300mg/ml 100ml inj. ONE
== END 2023-12-14 23:59 | disposition home or self-care (01) ==
LOC: RAD 14:16
PROVIDERS: ATTEND Nurse Practitioner Family
DX: N43.2 Other hydrocele (principal); I86.1 Scrotal varices; N50.812 Left testicular pain; N50.89 Other specified disorders of the male genital organs
CPT/HCPCS: 76870; 93976

== ENCOUNTER 2024-02-18 14:47 | Outpatient (CLI) | payer BC ==
[2024-02-18 15:32] LABS: BILIRUBIN,URINE NEGATIVE (Neg); CLARITY,URINE CLEAR (Clear); COLOR,URINE YELLOW (Yellow); GLUCOSE, URINE NEGATIVE (Neg); KETONES,URINE NEGATIVE (Neg); LEUKOCYTE ESTERASE ,URINE NEGATIVE (Neg); NITRITES, URINE NEGATIVE (Neg); OCCULT BLOOD,URINE NEGATIVE (Neg); PROTEIN,URINE 30 mg/dl (Neg); UROBILINOGEN,URINE 0.2 E.U/dL (0.2-1.0)
[2024-02-18 15:37] LABS: BASOPHILS # (AUTO) 0.1 X10'3 (0-0.2); BASOPHILS % (AUTO) 1.2 % (0-1); EOSINOPHILS # (AUTO) 0.4 X10'3 (0-0.9); EOSINOPHILS % (AUTO) 5.4 % (0-6); HEMATOCRIT 25.6 % (42.0-52.0); HEMOGLOBIN 8.3 g/dl (14.0-17.9); LYMPHOCYTES # (AUTO) 1.2 X10'3 (1.1-4.8); LYMPHOCYTES % (AUTO) 18.2 % (21-51); MEAN CORPUSCULAR HEMOGLOBIN 29.7 PG (27.0-31.0); MEAN CORPUSCULAR HGB CONC 32.4 g/dL (33.0-36.5); MEAN CORPUSCULAR VOLUME 91.8 FL (78-98); MEAN PLATELET VOLUME 8.3 FL (7.4-10.4); MONOCYTES # (AUTO) 0.6 X10'3 (0-0.9); MONOCYTES % (AUTO) 9.8 % (2-12); NEUTROPHILS # (AUTO) 4.3 X10'3 (1.8-7.7); NEUTROPHILS % (AUTO) 65.4 % (42-75); PLATELET COUNT 256 X10'3 (140-440); RED BLOOD COUNT 2.79 X10'6 (4.70-6.10); WHITE BLOOD COUNT 6.6 X10'3 (4.5-11.0)
[2024-02-18 15:39] LABS: UA COLLECTION TYPE CLN CATCH MIDSTREAM
[2024-02-18 15:49] LABS: SQUAMOUS EPITHELIAL CELL,UR MANY /LPF (FEW)
[2024-02-18 15:50] LABS: BACTERIA,URINE 1+ /HPF (Neg); MUCUS STRANDS FEW /LPF (Neg); RBC,URINE 0-2 /HPF (0-2); WBC,URINE 0-4 /HPF (0-4)
[2024-02-18 16:00] LABS: ALANINE AMINOTRANSFERASE 26 U/L (12-78); ALBUMIN 3.4 G/DL (3.4-5.0); ALBUMIN/GLOBULIN RATIO 0.9 (1.1-1.5); ALKALINE PHOSPHATASE 41 IU/L (46-116); ANION GAP 4 (8-16); ASPARTATE AMINO TRANSFERASE 36 U/L (10-37); BILIRUBIN,TOTAL 0.4 MG/DL (0.1-1.0); BLOOD UREA NITROGEN 26 MG/DL (7-18); CHLORIDE 104 MMOL/L (99-107); FERRITIN 11 NG/ML (26-388); GLUCOSE 125 MG/DL (70-104); POTASSIUM 4.3 MMOL/L (3.5-5.1); SODIUM 139 MMOL/L (135-145); TOTAL CARBON DIOXIDE 31.4 MMOL/L (24-32); TOTAL PROTEIN 7.1 G/DL (6.4-8.2); eGFR 57 ML/MIN
== END 2024-02-18 23:59 | disposition home or self-care (01) ==
LOC: RAD 14:47
PROVIDERS: ATTEND Nurse Practitioner Family
DX: D64.9 Anemia, unspecified (principal)
CPT/HCPCS: 36415; 80053; 81001; 82728; 84466; 85025

== ENCOUNTER 2024-03-03 13:32 | Outpatient (CLI) | payer BC ==
[~2024-03-03] VITALS: Ht 172.7 cm; Wt 132.4 kg
[2024-03-03] MEDS ORDERED: ATOR40TA72 PO (14:15)
[2024-03-03] MEDS ORDERED: FENO160T PO (14:16)
[2024-03-03] MEDS ORDERED: SACU1TAB7 PO (14:16)
[2024-03-03] MEDS ORDERED: SILD25TA PO (14:16)
[2024-03-03] MEDS ORDERED: FURO40TA4 PO (14:16)
[2024-03-03] MEDS ORDERED: BUPR1FIL3 (14:16)
[2024-03-03] MEDS ORDERED: CARV-50 PO (14:16)
[2024-03-03 14:30] LABS: BASOPHILS # (AUTO) 0.1 X10'3 (0-0.2); BASOPHILS % (AUTO) 0.9 % (0-1); EOSINOPHILS # (AUTO) 0.2 X10'3 (0-0.9); EOSINOPHILS % (AUTO) 4.1 % (0-6); LYMPHOCYTES % (AUTO) 16.6 % (21-51); MEAN CORPUSCULAR HEMOGLOBIN 28.2 PG (27.0-31.0); MEAN CORPUSCULAR HGB CONC 31.9 g/dL (33.0-36.5); MEAN CORPUSCULAR VOLUME 88.6 FL (78-98); MEAN PLATELET VOLUME 8.4 FL (7.4-10.4); MONOCYTES # (AUTO) 0.6 X10'3 (0-0.9); NEUTROPHILS # (AUTO) 4.1 X10'3 (1.8-7.7); NEUTROPHILS % (AUTO) 68.4 % (42-75); PRE OP HEMATOCRIT 25.5 % (42.0-52.0); PRE OP PLATELET COUNT 213 X10'3 (140-440); PRE OP WHITE BLOOD COUNT 5.9 10'3 (4.8-10.8); RED BLOOD COUNT 2.88 X10'6 (4.70-6.10); RED CELL DISTRIBUTION WIDTH 16.3 % (11.5-14.5)
[2024-03-03 14:33] LABS: PRE OP HEMOGLOBIN 8.1 g/dL (14.0-17.9)
[2024-03-03 15:24] LABS: ALBUMIN 3.4 G/DL (3.4-5.0); ALBUMIN/GLOBULIN RATIO 0.9 (1.1-1.5); ALKALINE PHOSPHATASE 39 IU/L (46-116); BLOOD UREA NITROGEN 26 MG/DL (7-18); BUN/CREATININE RATIO 17.1 (10.0-20.0); CALCIUM 8.5 MG/DL (8.5-10.1); CHLORIDE 104 MMOL/L (99-107); CREATININE 1.52 MG/DL (0.60-1.10); PRE OP ALT 20 U/L (30-65); PRE OP ANION GAP 6 (8-16); PRE OP AST 33 U/L (10-37); PRE OP BILIRUB, TOTAL 0.6 MG/DL (0.0-1.0); PRE OP GLUCOSE 127 MG/DL (70-104); PRE OP POTASSIUM 4.2 MMOL/L (3.4-5.1); PRE OP SODIUM 141 MMOL/L (135-145); TOTAL CARBON DIOXIDE 30.8 MMOL/L (24-32); TOTAL PROTEIN 7.3 G/DL (6.4-8.2); eGFR 48 ML/MIN
[2024-03-05] MEDS ORDERED: PANT-47 PO (19:07)
[2024-03-10] MEDS ORDERED: DOCUMENT DATE & TIME OF BETA-BLOCKER PO ONE (05:30)
[2024-03-10] MEDS ORDERED: ringers solution, lacted 1,000 ML IV SCH (05:30)
[2024-03-10] MEDS ORDERED: famotidine 20mg tablet PO ONE (05:30)
== END 2024-03-03 23:59 | disposition home or self-care (01) ==
LOC: LAB 13:32 → EDSTATUS 03-10 13:00
PROVIDERS: ATTEND Urology
DX: Z01.818 Encounter for other preprocedural examination (principal); N43.2 Other hydrocele; G47.30 Sleep apnea, unspecified; I25.10 Atherosclerotic heart disease of native coronary artery without angina pectoris; I11.0 Hypertensive heart disease with heart failure; I48.91 Unspecified atrial fibrillation; I50.30 Unspecified diastolic (congestive) heart failure; I25.2 Old myocardial infarction; E78.5 Hyperlipidemia, unspecified; Z88.8 Allergy status to other drugs, medicaments and biological substances; Z95.0 Presence of cardiac pacemaker; D64.9 Anemia, unspecified; Z87.442 Personal history of urinary calculi; Z98.890 Other specified postprocedural states; Z79.899 Other long term (current) drug therapy
CPT/HCPCS: 36415; 80053; 85025; 93005; J7120

== ENCOUNTER 2024-03-11 14:53 | Outpatient (CLI) | payer BC ==
[~2024-03-11 14:53] MED LIST changes: -ATOR20TA66 PO; +ATOR40TA72 PO; -BUPR1FIL20 SL; +BUPR1FIL3; +CARV-50 PO; -CARV3.12 PO; +FENO160T PO; +FURO40TA4 PO; -ONDA-243 PO; +PANT-47 PO; +SACU1TAB7 PO; +SILD25TA PO
[2024-03-11 15:23] LABS: ABSOLUTE RETICS # 53400 /CUMM (23000-93000); BASOPHILS # (AUTO) 0.1 X10'3 (0-0.2); BASOPHILS % (AUTO) 1.2 % (0-1); EOSINOPHILS # (AUTO) 0.6 X10'3 (0-0.9); EOSINOPHILS % (AUTO) 8.8 % (0-6); HEMATOCRIT 28.8 % (42.0-52.0); HEMOGLOBIN 9.2 g/dl (14.0-17.9); LYMPHOCYTES # (AUTO) 1.1 X10'3 (1.1-4.8); LYMPHOCYTES % (AUTO) 17.9 % (21-51); MEAN CORPUSCULAR HEMOGLOBIN 27.8 PG (27.0-31.0); MEAN CORPUSCULAR HGB CONC 31.8 g/dL (33.0-36.5); MEAN CORPUSCULAR VOLUME 87.3 FL (78-98); MONOCYTES # (AUTO) 0.6 X10'3 (0-0.9); NEUTROPHILS # (AUTO) 3.9 X10'3 (1.8-7.7); NEUTROPHILS % (AUTO) 62.1 % (42-75); PLATELET COUNT 205 X10'3 (140-440); RED CELL DISTRIBUTION WIDTH 16.6 % (11.5-14.5); RETICULOCYTE % (AUTO) 1.6 % (0.5-1.5); WHITE BLOOD COUNT 6.4 X10'3 (4.5-11.0)
[2024-03-11 15:55] LABS: ALANINE AMINOTRANSFERASE 18 U/L (12-78); ALBUMIN 3.6 G/DL (3.4-5.0); ALBUMIN/GLOBULIN RATIO 0.9 (1.1-1.5); ALKALINE PHOSPHATASE 36 IU/L (46-116); ANION GAP 5 (8-16); ASPARTATE AMINO TRANSFERASE 31 U/L (10-37); BILIRUBIN,TOTAL 0.7 MG/DL (0.1-1.0); BLOOD UREA NITROGEN 25 MG/DL (7-18); BUN/CREATININE RATIO 17.7 (10.0-20.0); CALCIUM 8.9 MG/DL (8.5-10.1); CHLORIDE 105 MMOL/L (99-107); CREATININE 1.41 MG/DL (0.60-1.10); FERRITIN 36 NG/ML (26-388); FREE T4 (FREE THYROXINE) 1.18 NG/DL (0.73-1.40); GLUCOSE 110 MG/DL (70-104); LACTATE DEHYDROGENASE 292 U/L (85-227); POTASSIUM 4.7 MMOL/L (3.5-5.1); SODIUM 142 MMOL/L (135-145); THYROID STIMULATING HORMONE 3.44 ulU/ml (0.34-4.50); TOTAL CARBON DIOXIDE 32.3 MMOL/L (24-32); TOTAL PROTEIN 7.7 G/DL (6.4-8.2); eGFR 52 ML/MIN
[2024-03-11 16:09] LABS: % IRON SATURATION 16 % (11-46); IRON 93 UG/DL (53-167); TOTAL IRON BINDING CAPACITY 596 UG/DL (259-388)
[2024-03-13 13:11] LABS: FOLATE SERUM(FOLIC) 7.2 ng/mL (>3.0)
== END 2024-03-11 23:59 | disposition home or self-care (01) ==
LOC: RAD 14:53
PROVIDERS: ATTEND Student in an Organized Health Care Education/Training Program
DX: D64.9 Anemia, unspecified (principal); I48.91 Unspecified atrial fibrillation; I50.9 Heart failure, unspecified
CPT/HCPCS: 36415; 80053; 82607; 82728; 82746; 83540; 83550; 83615; 84439; 84443; 84466; 85025; 85045

== ENCOUNTER 2024-04-04 14:47 | Outpatient (CLI) | payer BC ==
[2024-04-04 15:29] LABS: ABSOLUTE RETICS # 61100 /CUMM (23000-93000); BASOPHILS # (AUTO) 0.1 X10'3 (0-0.2); BASOPHILS % (AUTO) 1.1 % (0-1); EOSINOPHILS # (AUTO) 0.5 X10'3 (0-0.9); EOSINOPHILS % (AUTO) 8.6 % (0-6); HEMOGLOBIN 10.4 g/dl (14.0-17.9); LYMPHOCYTES # (AUTO) 1.1 X10'3 (1.1-4.8); LYMPHOCYTES % (AUTO) 17.6 % (21-51); MEAN CORPUSCULAR HEMOGLOBIN 29.2 PG (27.0-31.0); MEAN CORPUSCULAR HGB CONC 32.7 g/dL (33.0-36.5); MEAN CORPUSCULAR VOLUME 89.3 FL (78-98); MEAN PLATELET VOLUME 7.8 FL (7.4-10.4); MONOCYTES # (AUTO) 0.5 X10'3 (0-0.9); MONOCYTES % (AUTO) 7.7 % (2-12); PLATELET COUNT 210 X10'3 (140-440); RED BLOOD COUNT 3.58 X10'6 (4.70-6.10); RED CELL DISTRIBUTION WIDTH 20.1 % (11.5-14.5); RETICULOCYTE % (AUTO) 1.7 % (0.5-1.5); WHITE BLOOD COUNT 6.2 X10'3 (4.5-11.0)
[2024-04-04 15:35] LABS: % IRON SATURATION 20 % (11-46); IRON 102 UG/DL (53-167); TOTAL IRON BINDING CAPACITY 508 UG/DL (259-388)
[2024-04-04 16:03] LABS: ALANINE AMINOTRANSFERASE 23 U/L (12-78); ALBUMIN 3.5 G/DL (3.4-5.0); ALBUMIN/GLOBULIN RATIO 0.8 (1.1-1.5); ALKALINE PHOSPHATASE 61 IU/L (46-116); ANION GAP 7 (8-16); ASPARTATE AMINO TRANSFERASE 36 U/L (10-37); BILIRUBIN,TOTAL 0.6 MG/DL (0.1-1.0); BLOOD UREA NITROGEN 16 MG/DL (7-18); BUN/CREATININE RATIO 14.8 (10.0-20.0); CALCIUM 9.3 MG/DL (8.5-10.1); CHLORIDE 103 MMOL/L (99-107); CREATININE 1.08 MG/DL (0.60-1.10); FERRITIN 36 NG/ML (26-388); FREE T4 (FREE THYROXINE) 1.06 NG/DL (0.73-1.40); GLUCOSE 145 MG/DL (70-104); POTASSIUM 3.7 MMOL/L (3.5-5.1); SODIUM 143 MMOL/L (135-145); THYROID STIMULATING HORMONE 2.27 ulU/ml (0.34-4.50); TOTAL CARBON DIOXIDE 33.4 MMOL/L (24-32); TOTAL PROTEIN 7.7 G/DL (6.4-8.2); eGFR 71 ML/MIN
[2024-04-04 16:28] LABS: ANISOCYTOSIS 3+; HYPOCHROMASIA 1+; PLATELET ESTIMATE NORMAL; POLYCHROMASIA 1+
[2024-04-04 16:29] LABS: STOMATOCYTES FEW
[2024-04-04 16:42] LABS: LACTATE DEHYDROGENASE 293 U/L (85-227)
[2024-04-07 08:09] LABS: TRANSFERRIN 423 mg/dL (177-329)
== END 2024-04-04 23:59 | disposition home or self-care (01) ==
LOC: LAB 14:47
PROVIDERS: ATTEND Student in an Organized Health Care Education/Training Program
DX: I48.91 Unspecified atrial fibrillation (principal); I50.9 Heart failure, unspecified; D64.9 Anemia, unspecified
CPT/HCPCS: 36415; 80053; 82607; 82728; 82746; 83540; 83550; 83615; 84439; 84443; 84466; 85008; 85025; 85045

== ENCOUNTER 2024-04-29 15:27 | Outpatient (CLI) | payer BC ==
[2024-04-29 16:22] LABS: BASOPHILS # (AUTO) 0.1 X10'3 (0-0.2); BASOPHILS % (AUTO) 1.2 % (0-1); EOSINOPHILS # (AUTO) 0.7 X10'3 (0-0.9); EOSINOPHILS % (AUTO) 11.2 % (0-6); HEMOGLOBIN 10.7 g/dl (14.0-17.9); LYMPHOCYTES % (AUTO) 17.1 % (21-51); MEAN CORPUSCULAR HEMOGLOBIN 30.1 PG (27.0-31.0); MEAN CORPUSCULAR HGB CONC 33.5 g/dL (33.0-36.5); MEAN CORPUSCULAR VOLUME 89.9 FL (78-98); MEAN PLATELET VOLUME 7.9 FL (7.4-10.4); MONOCYTES # (AUTO) 0.6 X10'3 (0-0.9); MONOCYTES % (AUTO) 10.8 % (2-12); NEUTROPHILS # (AUTO) 3.6 X10'3 (1.8-7.7); NEUTROPHILS % (AUTO) 59.7 % (42-75); PLATELET COUNT 198 X10'3 (140-440); RED BLOOD COUNT 3.56 X10'6 (4.70-6.10)
[2024-04-29 16:30] LABS: % IRON SATURATION 26 % (11-46); IRON 141 UG/DL (53-167); TOTAL IRON BINDING CAPACITY 534 UG/DL (259-388)
[2024-04-29 16:44] LABS: FERRITIN 36 NG/ML (26-388)
== END 2024-04-29 23:59 | disposition home or self-care (01) ==
LOC: RAD 15:27
PROVIDERS: ATTEND Student in an Organized Health Care Education/Training Program
DX: D64.9 Anemia, unspecified (principal)
CPT/HCPCS: 36415; 82728; 83540; 83550; 85025

== ENCOUNTER 2024-06-18 08:37 | Day surgery (SDC) | payer BC ==
[2024-06-11 10:51] LABS: BASOPHILS # (AUTO) 0.1 X10'3 (0-0.2); BASOPHILS % (AUTO) 1.3 % (0-1); EOSINOPHILS # (AUTO) 0.4 X10'3 (0-0.9); EOSINOPHILS % (AUTO) 7.4 % (0-6); LYMPHOCYTES # (AUTO) 1.1 X10'3 (1.1-4.8); LYMPHOCYTES % (AUTO) 17.6 % (21-51); MEAN CORPUSCULAR HEMOGLOBIN 30.3 PG (27.0-31.0); MEAN CORPUSCULAR HGB CONC 32.8 g/dL (33.0-36.5); MEAN CORPUSCULAR VOLUME 92.5 FL (78-98); MEAN PLATELET VOLUME 7.9 FL (7.4-10.4); MONOCYTES # (AUTO) 0.6 X10'3 (0-0.9); MONOCYTES % (AUTO) 10.2 % (2-12); NEUTROPHILS # (AUTO) 3.8 X10'3 (1.8-7.7); NEUTROPHILS % (AUTO) 63.5 % (42-75); PRE OP HEMATOCRIT 35.3 % (42.0-52.0); PRE OP HEMOGLOBIN 11.6 g/dL (14.0-17.9); PRE OP PLATELET COUNT 181 X10'3 (140-440); RED BLOOD COUNT 3.82 X10'6 (4.70-6.10); RED CELL DISTRIBUTION WIDTH 15.8 % (11.5-14.5)
[2024-06-11 11:15] LABS: ALBUMIN 3.5 G/DL (3.4-5.0); ALBUMIN/GLOBULIN RATIO 0.9 (1.1-1.5); ALKALINE PHOSPHATASE 47 IU/L (46-116); BLOOD UREA NITROGEN 22 MG/DL (7-18); BUN/CREATININE RATIO 23.9 (10.0-20.0); CALCIUM 9.2 MG/DL (8.5-10.1); CHLORIDE 108 MMOL/L (99-107); CREATININE 0.92 MG/DL (0.60-1.10); PRE OP ALT 27 U/L (30-65); PRE OP ANION GAP 5 (8-16); PRE OP AST 36 U/L (10-37); PRE OP BILIRUB, TOTAL 0.4 MG/DL (0.0-1.0); PRE OP GLUCOSE 148 MG/DL (70-104); PRE OP POTASSIUM 4.3 MMOL/L (3.4-5.1); PRE OP SODIUM 144 MMOL/L (135-145); TOTAL CARBON DIOXIDE 31.5 MMOL/L (24-32); TOTAL PROTEIN 7.3 G/DL (6.4-8.2); eGFR 85 ML/MIN
[~2024-06-18] VITALS: Ht 172.7 cm; Wt 128.5 kg
[2024-06-18] VITALS (21 sets, daily range): BP systolic 99–126; BP diastolic 58–75; PULSE 66–83; RESP 10–18; TEMP 98.1; O2SAT 92–96
[2024-06-18] MEDS: DOCUMENT DATE & TIME OF BETA-BLOCKER PO ONE (05:30)
[~2024-06-18 08:37] MED LIST changes: -BUPR1FIL3; +BUPR1FIL3 PO; +FEROUS SULFATE; -PANT-47 PO; -SILD25TA PO
[2024-06-18] MEDS: CEFAZOLIN 3GM/DEXTROSE 150mL 150 ML IV ONE (09:33)
[2024-06-18] MEDS: ringers solution, lacted 1,000 ML IV SCH (09:33)
[2024-06-18] MEDS: famotidine 20mg tablet PO ONE (09:33)
[2024-06-18] MEDS ORDERED: bacitracin 15gm ointment TP ONE (10:47)
[2024-06-18] MEDS ORDERED: BUPIVAcaine 2.5mg/ml inj 50ml vial (contains preservative) ONE (10:47)
[2024-06-18] MEDS ORDERED: meperidine/PF 25mg/ml syringe IV PRN ×3 (11:00)
[2024-06-18] MEDS ORDERED: hydrALAZINE 20mg/ml inj. IV PRN (11:00)
[2024-06-18] MEDS ORDERED: ondansetron/PF 4mg/2ml inj IV PRN (11:00)
[2024-06-18] MEDS ORDERED: labetalol 20mg/4ml (5mg/ml) syringe IV PRN (11:00)
[2024-06-18] MEDS ORDERED: proCHLORperazine 10 MG/2 ml inj IV PRN (11:00)
[2024-06-18] MEDS ORDERED: morphine 2 MG/ML inj. syringe IV PRN (11:00)
[2024-06-18] MEDS ORDERED: ringers solution, lacted 1,000 ML IV SCH (11:00)
[2024-06-18] MEDS ORDERED: sevoflurane 250ml liquid IH ONE (11:01)
[2024-06-18] MEDS ORDERED: fentaNYL/PF 50MCG/1 ML 2ML syringe ONE (11:08)
[2024-06-18] MEDS ORDERED: dexamethasone sod phosphate 4mg/ml inj. ONE (11:18)
[2024-06-18] MEDS ORDERED: LIDOcaine 2% (20mg/ml) 5ml vial ONE (11:18)
[2024-06-18] MEDS ORDERED: midazolam 1 mg/ML 2ml injection ONE (11:18)
[2024-06-18] MEDS ORDERED: propofol inj 20 ML IV ONE (11:18)
[2024-06-18] MEDS ORDERED: ondansetron/PF 4mg/2ml inj ONE (11:18)
[2024-06-18] MEDS: BUPIVAcaine/PF 2.5 mg/ml (0.25%) 30ml vial IJ ONE (11:39)
[2024-06-18] MEDS ORDERED: meperidine/PF 100mg/ml syringe IV PRN ×2 (12:41)
[2024-06-18] MEDS: meperidine/PF 100mg/ml syringe IV PRN (12:45)
[2024-06-18] MEDS: acetaminophen 1,000mg/100ml IV 100 ML IV PRN (12:51)
[2024-06-18] MEDS: oxyCODONE IR 5mg (immed. release) tablet PO STA (13:15)
[2024-06-18] MEDS: morphine 4 MG/ML inj SYRINge IV PRN (13:57)
== END 2024-06-18 15:44 | disposition home or self-care (01) ==
LOC: PAS 08:37
PROVIDERS: ATTEND Urology
DX: N43.2 Other hydrocele (principal); I25.10 Atherosclerotic heart disease of native coronary artery without angina pectoris; I11.0 Hypertensive heart disease with heart failure; I25.2 Old myocardial infarction; I48.91 Unspecified atrial fibrillation; Z87.442 Personal history of urinary calculi; Z88.0 Allergy status to penicillin; I50.30 Unspecified diastolic (congestive) heart failure; Z98.890 Other specified postprocedural states; E78.5 Hyperlipidemia, unspecified
CPT/HCPCS: 36415; 55041; 80053; 82948; 85025; 93005; J0131; J1100; J2003; J2175; J2250; J2270; J2405; J2704; J3010; J3490; J7030; J7120; Z7506; Z7508; Z7512; A4215; A4615; A4618; A7000

== ENCOUNTER 2024-08-13 22:37 | Emergency (ER) | payer BC ==
[~2024-08-13] VITALS: Ht 172.7 cm; Wt 129.5 kg
[2024-08-13 22:42] VITALS: TEMP 98.2
--- NOTE | 2024-08-13 22:53 | ELECTROCARDIOGRAPH REPORT ---
[facility] Test Date: 2024-08-13 Test Time: 22:44:50 Pat Name: IRENA TIDWELL Department: EMERGENCY ROOM Room: Gender: M Watermaster: : 1970 Requested By: KARLA CALDWELL Order Number: [id number] Reading MD: Dr. Karla Caldwell Measurements Intervals [place] Rate: 85 P: 0 ME: 199 QRS: 248 QRSD: 131 T: 97 QT: 446 QTc: 531 Interpretive Statements A-V dual-paced complexes w/ some inhibition No further analysis attempted due to paced rhythm Electronically Signed On 08-14-2024 3:31:[address] Karla Caldwell Please click the below link to view image of tracing.
[2024-08-13 23:00] LABS: BASOPHILS # (AUTO) 0.1 X10'3 (0-0.2); BASOPHILS % (AUTO) 1.2 % (0-1); EOSINOPHILS # (AUTO) 0.6 X10'3 (0-0.9); EOSINOPHILS % (AUTO) 9.7 % (0-6); HEMATOCRIT 34.1 % (42.0-52.0); HEMOGLOBIN 11.5 g/dl (14.0-17.9); LYMPHOCYTES # (AUTO) 1.2 X10'3 (1.1-4.8); LYMPHOCYTES % (AUTO) 21.2 % (21-51); MEAN CORPUSCULAR HEMOGLOBIN 31.1 PG (27.0-31.0); MEAN CORPUSCULAR HGB CONC 33.7 g/dL (33.0-36.5); MEAN CORPUSCULAR VOLUME 92.2 FL (78-98); MEAN PLATELET VOLUME 7.9 FL (7.4-10.4); MONOCYTES # (AUTO) 0.6 X10'3 (0-0.9); MONOCYTES % (AUTO) 9.5 % (2-12); NEUTROPHILS # (AUTO) 3.4 X10'3 (1.8-7.7); NEUTROPHILS % (AUTO) 58.4 % (42-75); PLATELET COUNT 184 X10'3 (140-440); RED BLOOD COUNT 3.69 X10'6 (4.70-6.10); RED CELL DISTRIBUTION WIDTH 14.4 % (11.5-14.5); WHITE BLOOD COUNT 5.8 X10'3 (4.5-11.0)
[2024-08-13 23:11] LABS: ALANINE AMINOTRANSFERASE 33 U/L (12-78); ALBUMIN 3.6 G/DL (3.4-5.0); ALBUMIN/GLOBULIN RATIO 1.1 (1.1-1.5); ALKALINE PHOSPHATASE 52 IU/L (46-116); ANION GAP 7 (8-16); ASPARTATE AMINO TRANSFERASE 39 U/L (10-37); BILIRUBIN,TOTAL 0.7 MG/DL (0.1-1.0); BLOOD UREA NITROGEN 44 MG/DL (7-18); BUN/CREATININE RATIO 23.8 (10.0-20.0); CALCIUM 9.1 MG/DL (8.5-10.1); CHLORIDE 103 MMOL/L (99-107); CREATININE 1.85 MG/DL (0.60-1.10); GLUCOSE 159 MG/DL (70-104); SODIUM 140 MMOL/L (135-145); TOTAL CARBON DIOXIDE 30.3 MMOL/L (24-32); eCRCL 43 ML/MIN; eGFR 38 ML/MIN
[2024-08-13 23:18] LABS: PRO BRAIN NATRIURETIC PEPTIDE 681 PG/ML (0-125)
--- NOTE | 2024-08-14 00:36 | RADIOLOGY REPORT ---
Clinical History CP Comparison CXR on 03/03/2024, 2 images. Technique: frontal chest x-ray Without Contrast IRENA TIDWELL, [id number] Findings: Heart - enlarged cardiac silhouette lungs - no consolidation. bones - no acute fracture. status post sternotomy. Posterior stabilization rods in the thoracolumba r spine. Other- pacer overlies the left hemithorax. Impression: 1. No focal consolidation. 2. Enlarged cardiac silhouette This report was electronically signed by Cynthia Jiménez MD on 08/14/2024 12:34:03 AM.
--- NOTE | 2024-08-14 03:06 | Physician Documentation ---
History of Present Illness ~ Chief Complaint: Syncope Stated Complaint: N.V Time Seen by MD: 03:04 OK to notify your PCP?: Yes Primary Medical Doctor: Carlos Pepe Source: patient, RN/, RN notes reviewed, old records Mode of Arrival: Ambulatory Exam Limitations: no limitations HPI 54 year old male brought to the ED via EMS with complaints of sudden onset of dizziness and nausea/vomiting shortly prior to arrival. Patient reports he was standing at home when he suddenly developed dizziness, as if he was on a boat, and needed to sit down. He also had nausea and an episode of vomiting. EMS was called and they gave 8 mg of Zofran during transport. He now feels improved and no longer is dizzy. He denies history of dizziness. He denies any numbness/weakness. He denies any recent travel or recent illness. Patient does report he has had some right ear issues lately and has a referral for an MRI, but is dealing with insurance complications. Medication Reconciliation Allergies: Coded Allergies: No Known Allergies (Unverified , 08/13/24) Scheduled Apixaban (Eliquis), 1 TAB PO Q12H, (Reported) Atorvastatin Calcium (Atorvastatin Calcium), 2 TAB PO DAILY, (Reported) Buprenorphine Hcl/Naloxone Hcl (Suboxone 8 Mg-2 Mg Sl Film), 1 TAB PO TID, (Reported) Carvedilol (Carvedilol), 1 TAB PO BID, (Reported) Eszopiclone (Eszopiclone), 1 TAB PO HS, (Reported) Fenofibrate (Fenofibrate), 1 TAB PO DAILY, (Reported) Meclizine HCl (Meclizine HCl), 1 TAB PO Q8H Sacubitril/Valsartan (Entresto 49 mg-51 mg Tablet), 1 TAB PO BID, (Reported) Scheduled PRN Furosemide (Furosemide), 1 TAB PO DAILY PRN for ANKLE SWELLING, (Reported) Miscellaneous Medications [Ferous Sulfate], (Reported) Past Medical History Past Medical History: Atrial Fibrillation, Coronary Artery Disease, Congestive Heart Failure, Hypertension, Myocardial Infarction, Sleep Apnea, Kidney Stones Past Surgical History: angioplasty, coronary bypass surgery, orthopedic surgeries, pacemaker, other Other Past Surgical History: Kidney stents Patient History: (CAD) Coronary arteriosclerosis MOTHER (DM Type 2) Diabetes mellitus type 2 MOTHER (ME) Myocardial infarction FATHER FH: COPD (chronic obstructive pulmonary disease) FATHER MOTHER Peripheral vascular disease FATHER Alcohol Use: None Drug Use: none Lives with: Family Lives In: Home Occupation: employed Review of Systems All Other Systems at this time: Reviewed and Negative ROS As stated above in the HPI, otherwise all systems are reviewed and negative. Physical Exam Vital Signs: RN Vital Signs have been reviewed: Yes, Temperature: 98.2, Source: Oral, Heart Rate: 63, Respiratory Rate: 12, BP: 105/67, Pulse Oximetry: 94, Weight: 129.500 Oxygen Flow Rate: 0 Pulse Oximetry Reflects: adequate oxygenation Physical Exam General: The patient is well developed, well nourished, nontoxic appearing and is in no acute distress. Skin: [place], warm and dry with no rashes. HEENT: Horizontal nystagmus. Bilateral TMs and external auditory canals are normal. Head was normocephalic and atraumatic. Chest: Clear to auscultation bilaterally without wheezes, rales or rhonchi. No accessory muscle use. No dullness to percussion. Heart: Rate regular and rhythmic. S1, S2. No murmurs. Palpation of the chest wall was normal. No rubs or thrills. Abdomen: Soft, nontender and nondistended. Positive bowel sounds. No guarding or rebound. Extremities: No cyanosis, clubbing or edema. The patient moves all extremities. Pulses were equal and symmetric. Neurologic: Motor and sensation grossly intact. Cranial nerves II-XII grossly intact. A & O x4. Psychologic: Normal mood and affect. No agitation. Progress Progress Note 0355: Patient able to ambulate without difficulty. Reports feeling greatly improved. Results/Orders Reviewed/noted all lab results: Yes Results/Orders Orders - ORION MICHEL MD Chest,Single View (08/13/24 23:07) Monitor (08/13/24 22:51) Saline Lock (08/13/24 22:51) Oxygen (08/13/24 22:51) Electrocardiogram (08/13/24 22:51) Gait Test (08/14/24 03:55) Completed Orders - ORION MICHEL MD Chest,Single View (08/13/24 23:07) Cbc/Diff (08/13/24 22:51) PBNP (08/13/24 22:51) Electrocardiogram (08/13/24 22:51) CMP (08/13/24 22:51) Hs Troponin I W Calculations (08/13/24 22:51) Hs Troponin I W Calculations (08/14/24 00:51) Hs Troponin I W Calculations (08/14/24 01:51) Meclizine Tablets (Antivert Tablet) (08/14/24 03:15) Acetaminophen 325mg Tablet (Tylenol Tabl (08/14/24 04:05) Medications Received in ER Medications (Trade) Dose Ordered Sig/Michael Route PRN Reason Start Time Stop Time Status Last Admin Dose Admin (Antivert tablet) 50 mg ONCE ONCE PO 08/14/24 03:15 08/14/24 03:16 DC 08/14/24 03:19 50 MG Vital Signs 08/13/24 08/13/24 08/13/24 08/14/24 22:42 23:00 23:56 02:22 Temp 98.2 Pulse 75 64 63 Resp 15 16 12 12 B/P (MAP) 118/68 101/54 (70) 105/67 (80) Pulse Ox 94 99 94 O2 Flow Rate 0 0 0 08/14/24 08/14/24 03:48 04:17 Pulse 64 63 Resp 12 16 B/P (MAP) 105/59 (74) 105/59 Pulse Ox 98 96 O2 Flow Rate 0 Laboratory Tests Test 08/13/24 22:45 08/14/24 00:49 08/14/24 01:57 White Blood Count 5.8 Red Blood Count 3.69 L Hemoglobin 11.5 L Hematocrit 34.1 L Mean Corpuscular Volume 92.2 Mean Corpuscular Hemoglobin 31.1 H Mean Corpuscular Hemoglobin Concent 33.7 Red Cell Distribution Width 14.4 Platelet Count 184 Mean Platelet Volume 7.9 Neutrophils (%) (Auto) 58.4 Lymphocytes (%) (Auto) 21.2 Monocytes (%) (Auto) 9.5 Eosinophils (%) (Auto) 9.7 H Basophils (%) (Auto) 1.2 H Neutrophils # (Auto) 3.4 Lymphocytes # (Auto) 1.2 Monocytes # (Auto) 0.6 Eosinophils # (Auto) 0.6 Basophils # (Auto) 0.1 CBC Comment Sodium Level 140 Potassium Level 4.0 Chloride Level 103 Carbon Dioxide Level 30.3 Anion Gap 7 L Blood Urea Nitrogen 44 H Creatinine 1.85 H Estimated GFR/1.73 m2 38 BUN/Creatinine Ratio 23.8 H Glucose Level 159 H Calcium Level 9.1 Total Bilirubin 0.7 Aspartate Amino Transf (AST/SGOT) 39 H Alanine Aminotransferase (ALT/SGPT) 33 Alkaline Phosphatase 52 Troponin I High Sensitivity 28 29 26 Pro-B-Type Natriuretic Peptide 681 H Total Protein 7.0 Albumin 3.6 Globulin 3.4 Albumin/Globulin Ratio 1.1 Chemistry Comments Troponin I High Sens Percent Delta 3 10 Troponin I Hi Sens Absolute Change 1 -3 Re-Evaluation Re-Evaluation : Re-Evaluation: Resolved, Improved Progress Patient was seen and examined. Patient was given reassurance. Patient presents with severe dizziness near syncopal episode. Patient was placed on a monitor given fluids laboratory work was obtained. Patient received meclizine. Afterwards patient had a gait test which was not difficult at this time. Tylenol was given finally patient was then discharged home given a prescription for the same. There were no neurological symptoms or localization to suggest central vertical. Laboratory work did not show any signs of infection with a normal WBC of 5.8 hemoglobin 11 and 34 without any left shift. Chemistry patient's renal function is 1.85 which is much higher than prior visit but the patient also has had renal insufficiency much worse at 3.0. Glucose slightly elevated at 159 troponins x3 were negative. X-ray did not show any signs of infection, widened mediastinum or signs of dissection. Patient improved and ultimately was discharged home. Prescription for meclizine was provided. Continuous desk monitor interpretation shows normal sinus rhythm heart rate 60s, no ectopy, normal, my interpretation. Pulse oximetry monitor interpretation shows normal oxygenation at 95% room air, normal, my interpretation. EKG/XRAY/CT/US/VASC/MRI EKG : Additional Comment Test Date: 2024-08-13 Test Time: 22:44:50 Pat Name: IRENA TIDWELL Department: EMERGENCY ROOM Room: Gender: M Heel Slicker: : 1970 Requested By: ORION MICHEL Order Number: [id number] Reading MD: Dr. Orion Michel Measurements Intervals [place] Rate: 85 P: 0 ND: 199 QRS: 248 QRSD: 131 T: 97 QT: 446 QTc: 531 Interpretive Statements A-V dual-paced complexes w/ some inhibition No further analysis attempted due to paced rhythm Electronically Signed On 08-14-2024 3:31:[address] Orion Michel (interpreted by me) Chest X-Ray : Additional Comments Clinical History CP Comparison CXR on 03/03/2024, 2 images. Technique: frontal chest x-ray Without Contrast IRENA TIDWELL, [id number] Findings: Heart - enlarged cardiac silhouette lungs - no consolidation. bones - no acute fracture. status post sternotomy. Posterior stabilization rods in the thoracolumbar spine. Other- pacer overlies the left hemithorax. Impression: 1. No focal consolidation. 2. Enlarged cardiac silhouette This report was electronically signed by Cynthia Jiménez MD on 08/14/2024 12:34:03 AM. Reviewed by me Medical Decision Making Additional info obtained from: old records Differential Dx:Considerations: Include: anemia, CVA, cerebral occlusion, cerebral thrombosis, dehydration, dysrhythmia, electrolyte disorder, encephalopathy, hypoglycemia, hypovolemia, labyrinthitis, Meniere's disease, myocardial infarction, TIA, vasovagal, vertigo central, vertigo peripheral, other Departure Time of Disposition: 04:04 Disposition: 01 HOME / SELF CARE / HOMELESS Impression: Primary Impression: Peripheral vertigo Qualified Codes: H81.399 - Other peripheral vertigo, unspecified ear Condition: Stable Discharge Instructions: Vertigo Additional Instructions: Take meclizine as needed. Follow up with your regular doctor. Return to the ER for chest pain, shortness of breath, blurred vision, severe headache, or any other new or worsening symptoms. Departure Forms: Excuse form Work or School Excused From: Work Excuse beginning now through the following date: August 15, 2024 Prescriptions Meclizine HCl (Meclizine HCl) 25 Mg Tablet 1 TAB PO Q8H for 14 Days, #30 TAB Prov: ORION MICHEL MD 08/14/24 Education Educated: Patient Educated regarding: diagnosis, treatment, need for follow up Signature Scribe Signature: Scribed for Orion Michel MD by Marla White . 08/14/24 03:33 Attestation: The note accurately reflects work and decisions made by me.Orion Michel MD 08/14/24 03:06 ORION MICHEL MD August 14, 2024 03:06 MARLA PRIETO August 14, 2024 03:37
[2024-08-14] MEDS: meclizine 12.5mg tablet PO ONE (03:19)
[2024-08-14] MEDS ORDERED: MECL-302 PO (03:49)
[2024-08-14] MEDS ORDERED: acetaminophen 325mg tablet PO ONE (04:05)
[2024-08-14 04:17] VITALS: BP 105/59; PULSE 63; RESP 16; O2SAT 96
== END 2024-08-14 04:25 | disposition home or self-care (01) ==
LOC: ER 22:38
DX: H81.391 Other peripheral vertigo, right ear (principal); I11.0 Hypertensive heart disease with heart failure; I25.10 Atherosclerotic heart disease of native coronary artery without angina pectoris; I50.9 Heart failure, unspecified; I48.91 Unspecified atrial fibrillation; G47.30 Sleep apnea, unspecified; Z95.0 Presence of cardiac pacemaker; Z95.1 Presence of aortocoronary bypass graft; Z87.440 Personal history of urinary (tract) infections
CPT/HCPCS: 36415; 71045; 80053; 83880; 84484; 85025; 93005; 99285; J8597

== ENCOUNTER 2024-09-02 14:53 | Outpatient (CLI) | payer BC ==
[~2024-09-02 14:53] MED LIST changes: +MECL-302 PO
[2024-09-02 15:50] LABS: BASOPHILS # (AUTO) 0.1 X10'3 (0-0.2); EOSINOPHILS # (AUTO) 0.7 X10'3 (0-0.9); HEMATOCRIT 36.5 % (42.0-52.0); HEMOGLOBIN 12.5 g/dl (14.0-17.9); LYMPHOCYTES # (AUTO) 1.3 X10'3 (1.1-4.8); LYMPHOCYTES % (AUTO) 16.4 % (21-51); MEAN CORPUSCULAR HEMOGLOBIN 31.7 PG (27.0-31.0); MEAN CORPUSCULAR HGB CONC 34.2 g/dL (33.0-36.5); MEAN CORPUSCULAR VOLUME 92.7 FL (78-98); MEAN PLATELET VOLUME 8.3 FL (7.4-10.4); MONOCYTES # (AUTO) 0.6 X10'3 (0-0.9); MONOCYTES % (AUTO) 7.7 % (2-12); NEUTROPHILS # (AUTO) 5.1 X10'3 (1.8-7.7); NEUTROPHILS % (AUTO) 65.9 % (42-75); PLATELET COUNT 217 X10'3 (140-440); RED BLOOD COUNT 3.94 X10'6 (4.70-6.10); RED CELL DISTRIBUTION WIDTH 14.4 % (11.5-14.5); WHITE BLOOD COUNT 7.7 X10'3 (4.5-11.0)
[2024-09-02 15:55] LABS: ALANINE AMINOTRANSFERASE 31 U/L (12-78); ALBUMIN 3.8 G/DL (3.4-5.0); ALBUMIN/GLOBULIN RATIO 1.2 (1.1-1.5); ALKALINE PHOSPHATASE 55 IU/L (46-116); ANION GAP 7 (8-16); ASPARTATE AMINO TRANSFERASE 38 U/L (10-37); BILIRUBIN,TOTAL 0.7 MG/DL (0.1-1.0); BLOOD UREA NITROGEN 34 MG/DL (7-18); BUN/CREATININE RATIO 21.1 (10.0-20.0); CHLORIDE 104 MMOL/L (99-107); CREATININE 1.61 MG/DL (0.60-1.10); GLUCOSE 144 MG/DL (70-104); POTASSIUM 4.3 MMOL/L (3.5-5.1); SODIUM 141 MMOL/L (135-145); TOTAL CARBON DIOXIDE 29.7 MMOL/L (24-32); TOTAL PROTEIN 7.1 G/DL (6.4-8.2); eGFR 45 ML/MIN
== END 2024-09-02 23:59 | disposition home or self-care (01) ==
LOC: LAB 14:53
PROVIDERS: ATTEND Nurse Practitioner Family
DX: D64.9 Anemia, unspecified (principal); R79.89 Other specified abnormal findings of blood chemistry
CPT/HCPCS: 36415; 80053; 85025

== ENCOUNTER 2024-10-02 08:29 | Outpatient (CLI) | payer BC ==
[2024-10-02] MEDS ORDERED: iohexol 300mg/ml 100ml inj. ONE (08:39)
--- NOTE | 2024-10-02 10:20 | RADIOLOGY REPORT ---
CT HEAD WITH CONTRAST CLINICAL HISTORY: TINNITUS, BILATERAL;TRANSIENT ALTERATION OF AWARENESS TECHNIQUE: Multiple contiguous axial images of the head with and without intravenous contrast. Coronal and sagit haven reformats. Radiation Dose Information: CT Dose: CTDI volume is 58 mGy. Dose-length product is 2317 mGy*cm Comparison: None FINDINGS: There is no evidence of intracranial hemorrhage, mass, mass effect or midline shift. There is no hyd rocephalus or extra-axial fluid collection. There is no pathologic focus of enhancement. The rtan-whi te matter differentiation appears maintained. The visualized paranasal sinuses and mastoid air cells are clear. The osseous structures appear unrem arkable. IMPRESSION: There is no acute intracranial process. HS:Y
== END 2024-10-02 23:59 | disposition home or self-care (01) ==
LOC: RAD 08:29
PROVIDERS: ATTEND Nurse Practitioner Family
DX: H93.13 Tinnitus, bilateral (principal); R40.4 Transient alteration of awareness
CPT/HCPCS: 70470; Q9967

== ENCOUNTER 2025-01-26 11:25 | Outpatient (CLI) | payer BC ==
[2025-01-26 11:52] LABS: MEAN PLATELET VOLUME 8.0 FL (7.4-10.4)
[2025-01-26 11:53] LABS: RED CELL DISTRIBUTION WIDTH 14.7 % (11.5-14.5)
[2025-01-26 12:07] LABS: TOTAL CARBON DIOXIDE 32.0 MMOL/L (24-32)
[2025-01-26 12:08] LABS: CHOL/HDL RATIO 4.1 (0.00-4.99); CREATININE 0.95 MG/DL (0.60-1.10); LDL CHOLESTEROL 49 MG/DL (50-100); eGFR 82 ML/MIN
== END 2025-01-26 23:59 | disposition home or self-care (01) ==
LOC: LAB 11:25
PROVIDERS: ATTEND Physician Assistant
DX: I50.22 Chronic systolic (congestive) heart failure (principal)
CPT/HCPCS: 36415; 80053; 80061; 85025